=== PATIENT | female | born 1935 | race Caucasian/White ===

== ENCOUNTER 2017-05-23 11:46 | Inpatient (IN) | payer OTHER ==
[~2017-05-23] VITALS: Ht 165.1 cm; Wt 80.8 kg
--- NOTE | ~2017-05-23 | EKG ---
[place] [address] [place] [address] ELECTROCARDIOGRAM REPORT Name: KAILASH QUINONEZ Room #: 207-P ADM IN M.R.#: [id number] Admission: 05/23/17 Attend Phys: Alexi Boucher MD Discharge: Date of : 34 Report #: [id number] THIS REPORT FOR: //name// [facility] ED Test Date: 2017-05-23 Test Time: 12:10:46 Pat Name: KAILASH QUINONEZ Department: Room: 207 Gender: F Public Affairs Director: Berta MULTANI : 1935 Requested By: Aziza Henao Order Number: [id number] MD: Giovanny Armijo Measurements Intervals [place] Rate: 69 P: 68 VA: 155 QRS: 43 QRSD: 90 T: 168 QT: 413 QTc: 443 Interpretive Statements Sinus rhythm Left atrial enlargement Probable anterior infarct, age indeterminate T-wave abnormality, consider lateral ischemia No previous ECG available for comparison Electronically Signed On 05-23-2017 14:44:59 PLANOGRAMMER by Giovanny Armijo [email or web address] <ELECTRONICALLY SIGNED> By: Giovanny Armijo MD, [facility] 05/23/17 1444 1210 1210 Giovanny Armijo MD, FAC /EPI
--- NOTE | ~2017-05-23 | D ---
[facility] [place] [address] DISCHARGE SUMMARY Name: KAILASH QUINONEZ Room #: 207-P ADM IN M.R.#: [id number] Admission: 05/23/17 Attend Phys: Alexi Boucher MD Discharge: Date of : 34 Report #: [id number] THIS REPORT FOR: //name// CC: Ranjeet Boucher FINAL DIAGNOSIS: Cxmap-vl-mdsmkgz congestive heart failure. HOSPITAL COURSE: The patient is admitted with shortness of breath. She was treated for heart failure. Dr. Armijo followed her course and adjusted medications accordingly. She had no other interval complications. She responded well to treatment. PHYSICAL EXAMINATION: GENERAL: On the day of discharge, she was awake and alert with stable vital signs. LUNGS: Clear. HEART: Regular. ABDOMEN: Soft, normoactive bowel sounds. EXTREMITIES: No edema. DISPOSITION: She will be discharged home with diet and activity as tolerated. She is to stop digoxin and verapamil and she will begin Cozaar for additional blood pressure control. She is to maintain sotalol and Eliquis. She is scheduled for an outpatient nuclear stress test through [facility] and then follow up with Dr. Orellana in 1 week. <ELECTRONICALLY SIGNED> By: Jeb Salazar MD 05/26/17 1415 1220 1245 Jeb Salazar MD /nt
--- NOTE | ~2017-05-23 | EKG ---
[place] [address] [employer] [place] [address] ELECTROCARDIOGRAM REPORT Name: KAILASH QUINONEZ Room #: 207-P ADM IN M.R.#: [id number] Admission: 05/23/17 Attend Phys: Alexi Boucher MD Discharge: Date of : 34 Report #: [id number] THIS REPORT FOR: //name// [facility] Test Date: 2017-05-25 Test Time: 06:29:30 Pat Name: KAILASH QUINONEZ Department: Room: 207 P Gender: F Geek Squad Manager: BRYANT : 1935 Requested By: Giovanny Armijo Order Number: [id number] MD: Giovanny Armijo Measurements Intervals [place] Rate: 50 P: 71 LA: 176 QRS: 56 QRSD: 91 T: 135 QT: 501 QTc: 457 Interpretive Statements Sinus rhythm Probable left atrial enlargement RSR' in V1 or V2, probably normal variant Repol abnrm suggests ischemia, anterolateral Compared to ECG 05/24/2017 09:44:50 No significant change was found Electronically Signed On 05-25-2017 8:26:26 DIRECTOR DATA MANAGEMENT by Giovanny Armijo [email or web address] <ELECTRONICALLY SIGNED> By: Giovanny Armijo MD, [facility] 05/25/17 0826 0629 Giovanny Armijo MD, [facility] /EPI
--- NOTE | ~2017-05-23 | H ---
[facility] [place] [address] HISTORY AND PHYSICAL Name: KAILASH QUINONEZ Room #: 207-P [facility] IN M.R.#: [id number] Admission: 05/23/17 Attend Phys: Alexi Boucher MD Discharge: 05/26/17 Date of : 34 Report #: [id number] THIS REPORT FOR: //name// CC: Ranjeet Boucher ATTENDING PHYSICIAN: Alexi Boucher MD. CHIEF COMPLAINT: Increasing shortness of breath for the last week or so. HISTORY OF PRESENT ILLNESS: The patient is an 81-year-old lady who presented with shortness of breath, which has been progressively getting worse since a vacation in [place] last week. The patient does have a history of pulmonary fibrosis and has been on oxygen at home. She reports that in the last 6 months, she has noticed exertional shortness of breath, but in the last 1 week, it got so extreme that she was even short of breath at rest. The patient at the time of evaluation in the ER was noted to have hypoxia, and O2 saturations were dropping in the mid 80s. The chest x-ray was clear but showed evidence of diffuse interstitial infiltrates. The patient was admitted to the hospital for possible management of congestive heart failure. After being admitted to the hospital, she was noted to have atrial fibrillation and has been started on a Cardizem drip. She reports that she feels extremely well this morning, and her shortness of breath has resolved. PAST MEDICAL HISTORY: Significant for history of COPD, pulmonary fibrosis and chronic bronchitis and possible hypertension. ALLERGIES: SHE IS KNOWN TO BE ALLERGIC TO STATINS. MEDICATIONS: She was currently on at home verapamil, hydrochlorothiazide, digoxin, citalopram and Praluent Pen. SOCIAL HISTORY: She does not smoke or drink alcohol. She has smoked in the past. REVIEW OF SYSTEMS: She denied having any dizziness, no headache, no focal weakness. No abdominal pain or any urinary symptoms. PHYSICAL EXAMINATION: GENERAL: Pleasant elderly lady who was resting in bed, did not appear to be in any distress. She was awake, alert, oriented to place and person. VITAL SIGNS: She was afebrile with a temperature of 36.4, pulse of 66, respiration rate of 22, blood pressure was 164/65, oxygen saturation 94% on 2 liters of oxygen per nasal cannula. HEENT: There was no pallor, no icterus. Mucosa was moist. NECK: Supple. LUNGS: Clear with no wheezing. [facility] [address] [place] [address] HISTORY AND PHYSICAL Name: KAILASH QUINONEZ Room #: 207-P [facility] IN .R.#: [id number] Admission: 05/23/17 Attend Phys: Alexi Boucher MD Discharge: 05/26/17 Date of : 34 Report #: [id number] HEART: First and second heart sound, which was irregular. ABDOMEN: Soft, nontender, bowel sounds normally heard. EXTREMITIES: Examination of extremities did not reveal any edema. NEUROLOGIC: Nonfocal. LABORATORY DATA: On admission showed a white cell count 6.7, hemoglobin 14.2, hematocrit 43.1 and a platelet count of 242. Protime was 9.8, with INR of 1.0. Sodium 138, potassium 3.9, chloride 102, bicarbonate of 31, BUN of 21, creatinine of 0.9, glucose was 131. Troponin was less than 0.04. Pro-natriuretic peptide was 937. D-dimer was 2.42. CT of the chest was negative for pulmonary embolism. ASSESSMENT: 1. Congestive heart failure. 2. Atrial fibrillation. 3. Chronic obstructive pulmonary disease. 4. Pulmonary fibrosis. Discussed with Dr. Armijo, the chief order dispatcher. We will try and change her medications to control her atrial fibrillation. Continue with diuresis for right now and monitor the patient on telemetry. <ELECTRONICALLY SIGNED> By: Alexi Boucher MD 06/01/17 1357 0903 1002 Alexi Boucher MD /nt
--- NOTE | ~2017-05-23 | EKG ---
[place] [address] [facility] [place] [address] ELECTROCARDIOGRAM REPORT Name: KAILASH QUINONEZ Room #: 207-P ADM IN M.R.#: [id number] Admission: 05/23/17 Attend Phys: Alexi Boucher MD Discharge: Date of : 34 Report #: [id number] THIS REPORT FOR: //name// [facility] ED Test Date: 2017-05-23 Test Time: 14:41:14 Pat Name: KAILASH QUINONEZ Department: Room: 207 P Gender: F Petroleum Engineer: [facility] : 1935 Requested By: Aziza Henao Order Number: [id number] MD: Giovanny Armijo Measurements Intervals [place] Rate: 135 P: [place]: QRS: 50 QRSD: 79 T: 214 QT: 280 QTc: 420 Interpretive Statements Atrial fibrillation Ventricular premature complex RSR' in V1 or V2, right VCD Repolarization abnormality, prob rate related No previous ECG available for comparison Electronically Signed On 05-23-2017 14:46:05 ALL ROUND LOGGER by Giovanny Amrijo [email or web address] <ELECTRONICALLY SIGNED> By: Giovanny Armijo MD, [facility] 05/23/17 1446 1441 144 Giovanny Armijo MD, FACC /EPI
--- NOTE | ~2017-05-23 | EKG ---
[place] [address] [facility] [place] [address] ELECTROCARDIOGRAM REPORT Name: KAILASH QUINONEZ Room #: 207-P ADM IN M.R.#: [id number] Admission: 05/23/17 Attend Phys: Alexi Boucher MD Discharge: Date of : 34 Report #: [id number] THIS REPORT FOR: //name// [facility] Test Date: 2017-05-24 Test Time: 09:44:50 Pat Name: KAILASH QUINONEZ Department: Room: 207 P Gender: F Information Technology Assistant: JUANCHO : 1935 Requested By: Giovanny Armijo Order Number: [id number] MD: Giovanny Armijo Measurements Intervals [place] Rate: 59 P: 57 ID: 162 QRS: 44 QRSD: 103 T: 162 QT: 477 QTc: 473 Interpretive Statements Sinus rhythm ST and T wave abnormality, ischemia vs possible digoxin effect Compared to ECG 05/23/2017 14:41:14 Sinus rhythm has replaced atrial fibrillation Electronically Signed On 05-24-2017 11:35:01 CORRESPONDENCE ANALYST by Giovanny Armijo [email or web address] <ELECTRONICALLY SIGNED> By: Giovanny Armijo MD, [facility] 05/24/17 1135 Giovanny Armijo MD, [facility] /EPI
--- NOTE | ~2017-05-23 | EKG ---
[place] [address] [facility] [place] [address] ELECTROCARDIOGRAM REPORT Name: KAILASH QUINONEZ Room #: 207-P ADM IN M.R.#: [id number] Admission: 05/23/17 Attend Phys: Alexi Boucher MD Discharge: Date of : 34 Report #: [id number] THIS REPORT FOR: //name// [facility] Test Date: 2017-05-26 Test Time: 06:41:37 Pat Name: KAILASH QUINONEZ Department: Room: 207 P Gender: F Die Engraver: BRYANT : 1935 Requested By: Giovanny Armijo Order Number: [id number] MD: Dav Cheyr Measurements Intervals [place] Rate: 48 P: 63 [place]: 161 QRS: 55 QRSD: 90 T: 169 QT: 504 QTc: 451 Interpretive Statements Sinus bradycardia Probable left atrial enlargement Repol abnrm suggests ischemia, anterolateral Baseline wander in lead(s) II,III,aVF Compared to ECG 05/25/2017 06:29:30 Sinus rhythm no longer present Possible ischemia still present Electronically Signed On 05-26-2017 8:11:45 DATA REPORT ANALYST by Dav Chery [email or web address] <ELECTRONICALLY SIGNED> By: Dav Chery MD 05/26/17 0811 0 Dav Chery MD /EPI
--- NOTE | ~2017-05-23 | HC ---
[facility] [place] [address] CONSULTATION Name: KAILASH QUINONEZ Room #: 207-P [facility] IN M.R.#: [id number] Admission: 05/23/17 Attend Phys: Alexi Boucher MD Discharge: Date of : 34 Report #: [id number] THIS REPORT FOR: //name// CC: Ranjeet Boucher REASON FOR CONSULTATION: Atrial fibrillation. HISTORY OF PRESENT ILLNESS: The patient is an 81-year-old woman with a history of hypertension, marked dyslipidemia for which she takes Praluent and coronary disease by coronary artery calcification. She has a history of chronic bronchitis and pulmonary fibrosis, but does not use supplemental oxygen. She is recently back from a 2-week trip to [place], [place] where she was eating out almost every meal, except breakfast. She did get a fairly high dietary salt intake during this trip. When she returned, she developed shortness of breath and mild lower extremity edema. She was seen in the Emergency Department where initial EKG was normal. Follow up EKG demonstrated atrial fibrillation with a rapid ventricular response. She was largely asymptomatic with this rhythm abnormality. While in [place], she did notice some shortness of breath while dancing "the fast tunes." She denies orthopnea or paroxysmal nocturnal dyspnea. No history of near syncope or syncope. ALLERGIES AND INTOLERANCES: She has intolerance to STATINS. MEDICATIONS: Include alendronate 70 mg weekly, verapamil 240 mg daily, hydrochlorothiazide 50 mg daily, digoxin 0.125 mg daily, aspirin, Flonase and Praluent 75 mg injector. PAST MEDICAL HISTORY: Medical records have been reviewed and include a history of coronary disease by coronary calcium scoring, cervical cancer in 1974, osteomyelitis, pulmonary fibrosis, aljg-nv-cnzfzb aortic stenosis, moderate carotid stenosis, hysterectomy, bilateral hip replacements, cataract excision, carpal tunnel release. SOCIAL HISTORY: She is a former smoker, quit in 1985. 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 FAMILY HISTORY: Unremarkable for premature coronary disease. REVIEW OF SYSTEMS: Twelve systems negative except as that noted above. PHYSICAL EXAMINATION: GENERAL: Reveals a pleasant woman in no distress. VITAL SIGNS: Blood pressure is 170/80, heart rate of 119 and irregular. She is afebrile, 5 feet 5 inches tall, 171 pounds. HEENT: There are neither xanthelasma, subcutaneous xanthomata, oral mucosal or digital cyanosis or kyphoscoliosis present. [facility] [address] [place] [address] CONSULTATION Name: KAILASH QUINONEZ Room #: 207-P [facility] IN ..#: [id number] Admission: 05/23/17 Attend Phys: Alexi Boucher MD Discharge: Date of : 34 Report #: [id number] CHEST: Reveals diminished breath sounds at both bases. CARDIAC: An irregularly irregular rhythm with normal S1, S2. There is a soft systolic murmur at the base. ABDOMEN: Soft and nontender. EXTREMITIES: With 1+ pedal edema. Radial pulses are 2+. NEUROLOGIC: She is alert with a nonfocal exam. LABORATORY DATA: EKG: Atrial fibrillation with a rapid ventricular response with ST and T-wave abnormality, possibly related to digoxin. Sodium of 138, potassium 3.9, creatinine 0.9, glucose 131. ProBNP of 937. White count 6.7, hemoglobin 14.2, hematocrit 43, platelet count 242. TSH 1.125. CT angiography of the chest demonstrated no pulmonary embolism. There were diffuse interstitial infiltrates and gckx-sr-gvlcsuwt bilateral effusions suggesting edema. IMPRESSION: 1. Rdmra-ym-dumkjii diastolic heart failure. 2. Paroxysmal atrial fibrillation of recent onset, new diagnosis. 3. Hypertension. 4. Hpge-sf-pvyxlpcu aortic stenosis. 5. Pulmonary fibrosis. 6. Dyslipidemia. RECOMMENDATIONS: 1. Intravenous Cardizem, antiarrhythmic therapy. 2. Anticoagulant therapy in light of her elevated CHADS-VASc score. 3. Intravenous diuretic therapy; dietary salt restriction discussed. 4. Echocardiogram with Doppler. 5. Thyroid function studies. Further thoughts will be forthcoming based on this evaluation. Thank you for asking me to participate in the patient's care. <ELECTRONICALLY SIGNED> By: Giovanny Armijo MD, FACC 05/25/17 0907 1631 11 Giovanny Armijo MD, FACC /nt
--- NOTE | ~2017-05-23 | 2DMMODE ---
[facility] [address] [place] [address] 2 D/M-MODE ECHOCARDIOGRAM Name: KAILASH QUINONEZ Room #: 207-P ADM IN M.R.#: [id number] Admission: 05/23/17 Attend Phys: Elvira Roger Discharge: Date of : 33 Date of Service: 05/25/17 0900 Report #: [id number] THIS REPORT FOR: //name// APPROVED REPORT Study performed: 05/25/2017 07:50:42 EXAM: Comprehensive 2D, Doppler, and color-flow Echocardiogram Patient Location: Bedside Room #: 207 Status: routine BSA: 1.88 HR: 50 bpm BP: 121/59 mmHg Other Information Study Quality: Good Indications COPD Atrial Fibrillation Hypertension/HDD 2D Dimensions RVDd: 33.70 mm LVEF(%): 47.55 (>50%) IVSd: 15.78 (7-11mm) LVOT Diam: 16.33 (18-24mm) LVDd: 37.75 mm PWd: 15.34 (7-11mm) LVDs: 28.92 (25-40mm) Aortic Root: 28.29 mm IVC: 21.00 mm Perez's LVEF: 47.55 % Volumes Left Atrial Volume (Systole) Single Plane 4CH: 43.58 mL Single Plane 2CH: 51.10 mL LA ESV Index: 27.00 mL/m2 Aortic Valve AoV Peak Simeon.: 2.38 m/s AO Peak Gr.: 22.59 mmHg LVOT Max P.74 mmHg AO Mean Gr.: 9.54 mmHg LVOT Mean P.07 mmHg AO V2 Mean: 1.41 m/s LVOT Max V: 1.30 m/s AO V2 VTI: 48.43 cm LVOT Mean V: 0.79 m/s MARVA (VTI): 1.34 cm2 LVOT V1 VTI: 31.08 cm MARVA Vmax: 1.14 cm2 [facility] [employer] [place] [address] 2 D/M-MODE ECHOCARDIOGRAM Name: KAILASH QUINONEZ Room #: 207-P [facility] IN M.R.#: [id number] Admission: 05/23/17 Attend Phys: Elvira Roger Discharge: Date of : 33 Date of Service: 05/25/17 0900 Report #: [id number] SV (LVOT): 65.06 mL Mitral Valve E/A Ratio: 3.3 MV Decel. Time: 233.79 ms MV E Max Simeon.: 1.40 m/s MV A Simeon.: 0.42 m/s MV PHT: 67.80 ms IVRT: 83.04 ms Pulmonary Valve PV Peak Simeon.: 0.73 m/s PV Peak Gr.: 2.15 mmHg Pulmonary Vein P Vein S: 0.54 m/s P Vein D: 0.76 m/s P Vein S/D Ratio: 0.71 Tricuspid Valve TR Peak Simeon.: 3.28 m/s RAP Estimate: 10.00 mmHg TR Peak Gr.: 43.14 mmHg PA Pressure: 53.00 mmHg Left Ventricle The left ventricle is normal size. There is normal LV segmental wall motion. Mild to moderate concentric left ventricular hypertrophy. The left ventricular systolic function is normal. The left ventricular ejection fraction is within the normal range. LVEF is 60%. Transmitral Doppler flow pattern suggests restrictive physiology. Right Ventricle Right ventricle is at the upper limits of normal. The right ventricular systolic function is normal. Atria The left atrium size is normal. Right atrium is mildly dilated. Aortic Valve Aortic valve is calcified, trileaflet. No aortic regurgitation is present. There is mild to moderate valvular aortic stenosis. Calculated aortic valve area is 1.3 cm2 with maximum pressure gradient of 23 mmHg and mean pressure gradient of 10 mmHg. Mitral Valve [place] [id number] 2 D/M-MODE ECHOCARDIOGRAM Name: KAILASH QUINONEZ Room #: 207-P [facility] IN M.R.#: [id number] Admission: 05/23/17 Attend Phys: Elvira Roger Discharge: Date of : 34 Date of Service: 05/25/17 0900 Report #: [id number] Moderate mitral annular calcification. Mild mitral regurgitation. No evidence of mitral valve stenosis. Tricuspid Valve The tricuspid valve is normal in structure. Mild tricuspid regurgitation. PAP is estimated at 50 mmHg Pulmonic Valve The pulmonary valve is normal in structure. Trace to mild pulmonic regurgitation. Great Vessels The aortic root is normal in size. IVC is dilated and collapses >50% with inspiration. Pericardium There is no pericardial effusion. <Conclusion> The left ventricular systolic function is normal. There is normal LV segmental wall motion. LVEF is 60%. Transmitral Doppler flow pattern suggests restrictive physiology. Aortic valve is calcified, trileaflet. There is mild to moderate valvular aortic stenosis with a calculated aortic valve area is 1.3 cm2 (maximum pressure gradient of 23 mmHg; mean pressure gradient of 10 mmHg). Moderate mitral annular calcification. Mild mitral regurgitation. Mild tricuspid regurgitation. PAP is estimated at 50 mmHg There is no pericardial effusion. <ELECTRONICALLY SIGNED> By: Giovanny Armijo MD, FACC 05/25/17899 9 9 Giovanny Armijo MD, FACC /INF
[2017-05-23 11:50] VITALS: BP 186/64
[2017-05-23] MEDS ORDERED: HYDROCHLOROTHIA25 M2 PO (11:59)
[2017-05-23] MEDS ORDERED: VERAPAMIL HCL240 MG PO (11:59)
[2017-05-23] MEDS ORDERED: CELEXA20 MG PO (12:00)
[2017-05-23] MEDS ORDERED: DIGOXIN250 MCG PO (12:00)
[2017-05-23] MEDS ORDERED: PRALUENT P150 MG/1 M SUBQ (12:01)
[2017-05-23 12:04] LABS: ABSOLUTE NEUTROPHILS 4.6 thou/uL (1.4-8.2); BASOPHILS 0.8 % (0.0-2.0); EOSINOPHILS 2.1 % (0.0-3.0); HEMATOCRIT 43.1 % (37.0-47.0); HEMOGLOBIN 14.2 gm/dL (12.0-15.0); LYMPHOCYTES 19.2 % (24.0-44.0); MCH 27.7 pg (26.0-34.0); MONOCYTES 9.8 % (1.0-8.0); PLATELET COUNT 242 thou/uL (150-400); POLYS 68.1 % (36.0-66.0); RBC 5.13 mil/uL (4.20-5.00); RDW 15.5 % (10.5-14.5); WBC 6.7 thou/uL (4.0-11.0)
[2017-05-23 12:12] LABS: ANION GAP 5 mmol/L (7-16); BUN 21 mg/dL (7-18); CHLORIDE 102 mmol/L (98-107); CO2 31 mmol/L (21-32); CREATININE 0.9 mg/dL (0.6-1.0); GLUCOSE 131 mg/dL (74-106); POTASSIUM 3.9 mmol/L (3.5-5.1); SODIUM 138 mmol/L (136-145)
[2017-05-23 12:20] LABS: TROPONIN-I < 0.04 ng/mL (<0.06)
[2017-05-23 14:08] VITALS: BP 195/77
[2017-05-23 15:29] LABS: APTT 23.8 Seconds (24.5-32.8); PROTIME 9.8 Seconds (9.3-11.4)
[2017-05-23 16:15] VITALS: BP 180/82
[2017-05-23 16:19] VITALS: BP 174/82
[2017-05-23] MEDS ORDERED: PRESERVISION A1 EACH PO (19:58)
[2017-05-23] MEDS ORDERED: ALENDRONATE SOD70 MG PO (20:06)
[2017-05-23 20:07] VITALS: BP 156/80
[2017-05-23 23:34] VITALS: BP 162/77
[2017-05-24 05:07] VITALS: BP 159/63
[2017-05-24 07:25] VITALS: BP 164/65
[2017-05-24 11:35] VITALS: BP 150/65
[2017-05-24 16:25] VITALS: BP 120/53
[2017-05-24 20:46] VITALS: BP 115/53
[2017-05-25 05:14] VITALS: BP 121/59
[2017-05-25 08:00] VITALS: BP 147/65
[2017-05-25 12:00] VITALS: BP 126/61
[2017-05-25 16:00] VITALS: BP 124/66
[2017-05-25 20:12] VITALS: BP 143/55
[2017-05-26 04:45] VITALS: BP 138/67
[2017-05-26 04:50] LABS: CALCIUM 9.5 mg/dL (8.5-10.1); CREATININE 1.3 mg/dL (0.6-1.0); POTASSIUM 4.8 mmol/L (3.5-5.1)
[2017-05-26 08:10] VITALS: BP 174/65
[2017-05-26] MEDS ORDERED: SOTALOL80 MG PO (08:18)
[2017-05-26] MEDS ORDERED: ELIQUIS5 MG PO (08:18)
[2017-05-26] MEDS ORDERED: LASIX 20 MG TAB20 MG PO (10:18)
[2017-05-26] MEDS ORDERED: COZAAR 25 MG TA25 M1 PO (10:18)
[2017-05-26 11:35] VITALS: BP 140/54
[2017-05-26 13:19] VITALS: BP 140/54
[2017-08-18] MEDS ORDERED: CALCIUM 500 +1 EAC5 PO (19:58)
[2017-08-18] MEDS ORDERED: ALENDRONATE SOD10 MG PO (19:59)
[2017-08-18] MEDS ORDERED: KLOR-CON 1010 MEQ PO (20:00)
[2017-08-21] MEDS ORDERED: VENTOLIN HFA 1818 GM INH (11:45)
[2017-08-21] MEDS ORDERED: PREDNISONE 20 M20 M1 PO (11:45)
== END 2017-05-26 14:55 | disposition home or self-care (01) | DRG 291 ==
LOC: ER 11:46 → 2N 13:54 → EROBS 13:54 → 2N 14:35 → ENTRNSPT 05-26 14:44 → EDTRNSPTSTS 05-26 14:46 → 2N 05-26 14:55
PROVIDERS: Emergency Medicine; Internal Medicine Geriatric Medicine
PROC: B24BZZ4 Ultrasonography of Heart with Aorta, Transesophageal (ICD-10-PCS; principal; 2017-05-25)
DX: I11.0 Hypertensive heart disease with heart failure (principal); J96.00 Acute respiratory failure, unspecified whether with hypoxia or hypercapnia; D68.59 Other primary thrombophilia; I50.33 Acute on chronic diastolic (congestive) heart failure; J44.9 Chronic obstructive pulmonary disease, unspecified; E78.5 Hyperlipidemia, unspecified; I48.0 Paroxysmal atrial fibrillation; I25.10 Atherosclerotic heart disease of native coronary artery without angina pectoris; I35.0 Nonrheumatic aortic (valve) stenosis; J84.10 Pulmonary fibrosis, unspecified; Z96.643 Presence of artificial hip joint, bilateral; Z90.710 Acquired absence of both cervix and uterus; Z85.41 Personal history of malignant neoplasm of cervix uteri; Z87.891 Personal history of nicotine dependence; Z79.899 Other long term (current) drug therapy; Z88.8 Allergy status to other drugs, medicaments and biological substances
CPT/HCPCS: 10194

== ENCOUNTER 2017-09-19 10:22 | Inpatient (IN) | payer OTHER ==
[~2017-09-19] VITALS: Ht 165.1 cm; Wt 63.5 kg
--- NOTE | ~2017-09-19 | D ---
[facility] [place] [address] DISCHARGE SUMMARY Name: KAILASH QUINONEZ Room #: 221-P [facility] IN M.R.#: [id number] Admission: 09/19/17 Attend Phys: Elvira Esquivel Discharge: 09/24/17 Date of : 34 Report #: [id number] THIS REPORT FOR: //name// CC: Ranjeet Orellana FINAL DIAGNOSES: 1. Chronic obstructive pulmonary disease exacerbation. 2. Acute bronchitis. 3. Pulmonary hypertension. 4. Pulmonary fibrosis. 5. Chronic diastolic congestive heart failure. 6. Atrial fibrillation. HOSPITAL COURSE: This patient was admitted with shortness of breath. She was diagnosed with COPD exacerbation due to bronchitis and treated with steroids, nebulized treatments and antibiotics. She made slow and steady progress during her stay. She was followed by [facility]monary [facility] Cardiology Services. Other routine medications were continued. Gradually, her cough, congestion and hypoxia resolved. Over the last 2 hospital days, she was not requiring oxygen. Room air saturations with activity were 95% and an overnight desaturation study was negative for significant desaturations. She remained in the low-to-mid 90s all through the night. She had no other interval complication. PHYSICAL EXAMINATION: GENERAL: On the day of discharge, she was awake and alert, in no distress. VITAL SIGNS: Stable. LUNGS: Had just faint expiratory wheeze. HEART: Irregular. ABDOMEN: Soft. Normoactive bowel sounds. EXTREMITIES: No edema. DISPOSITION: She will be discharged to home with low-salt diet, activity as tolerated. Follow up with Dr. Orellana in [address] Saldaña in 1-2 weeks. DISCHARGE MEDICATIONS: She will resume all usual medications plus a slow prednisone taper of 20 mg b.i.d. for a week, then 20 mg a day until she returns to the office; Mucinex twice a day; DuoNebs 4 times a day and Augmentin 500 mg b.i.d. for 5 days. <ELECTRONICALLY SIGNED> By: Jeb Salazar MD 09/28/17 1405 1010 1130 Jeb Salazar MD /nt
--- NOTE | ~2017-09-19 | H ---
[facility] [place] [address] HISTORY AND PHYSICAL Name: KAILASH QUINONEZ ANN Room #: 416-P ADM IN M.R.#: [id number] Admission: 09/19/17 Attend Phys: Elvira Esquivel Discharge: Date of : 33 Report #: [id number] THIS REPORT FOR: //name// CC: Ranjeet Orellana DATE OF SERVICE: 09/19/2017 CHIEF COMPLAINT: This is an 81-year-old female with shortness of breath. HISTORY OF PRESENT ILLNESS: This is an 81-year-old female, since April, she has been struggling with intermittent episodes of dyspnea with known history of mild to moderate aortic stenosis. She has history of diastolic dysfunction and has had problems in the past with exacerbation. She also has some mild interstitial fibrosis or interstitial pneumonitis type process that really is not evident so much on x-ray, but on a high resolution CT. She had a long history of smoking and quit in the mid 80s. PAST MEDICAL HISTORY: Noteworthy mainly for those findings in the HPI. We did also note that she has a history of mild pulmonary hypertension mean by echo criteria. She has atrial fibrillation and currently is on Eliquis. MEDICATIONS: Include sotalol, losartan, citalopram, Lasix, albuterol, pantoprazole, piperacillin now IV, apixaban. FAMILY HISTORY: Otherwise, negative. SOCIAL HISTORY: Otherwise, negative. REVIEW OF SYSTEMS: Otherwise, negative. PHYSICAL EXAMINATION: GENERAL: Shows her to be in no distress. Her daughter is at the bedside. HEENT: Otherwise, negative. NECK: Supple, without thyromegaly or adenopathy. CHEST: Shows scattered rhonchi and wheezing. CARDIOVASCULAR: Showed a regular rate and rhythm. ABDOMEN: Soft and nontender. EXTREMITIES: Negative. ASSESSMENT AND PLAN: This is a patient with numerous reasons to be short of breath, but as I begin to understand the entire process it seems that this is more related to mucus production and wheezing and that there may be a more significant element of COPD that be contributing and is magnified because of her history of aortic stenosis, congestive heart failure and pulmonary fibrosis. So [facility] [address] [place] [address] HISTORY AND PHYSICAL Name: KAILASH QUINONEZ Room #: 416-P ADM IN M.R.#: [id number] Admission: 09/19/17 Attend Phys: Elvira Esquivel Discharge: Date of : 34 Report #: [id number] I think the plan will be to put more emphasis on pulmonary toilet and we will see if this does not improve her situation. By: 1018 1046 Ranjeet Orellana MD /nt
--- NOTE | ~2017-09-19 | EKG ---
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
[~2017-09-19 10:22] MED LIST: ALENDRONATE SOD10 MG PO; ALENDRONATE SOD70 MG PO; CALCIUM 500 +1 EAC5 PO; CELEXA20 MG PO; COZAAR 25 MG TA25 M1 PO; DIGOXIN250 MCG PO; ELIQUIS5 MG PO; HYDROCHLOROTHIA25 M2 PO; KLOR-CON 1010 MEQ PO; LASIX 20 MG TAB20 MG PO; PRALUENT P150 MG/1 M SUBQ; PREDNISONE 20 M20 M1 PO; PRESERVISION A1 EACH PO; SOTALOL80 MG PO; VENTOLIN HFA 1818 GM INH; VERAPAMIL HCL240 MG PO
[2017-09-19 10:40] VITALS: BP 182/79
[2017-09-19 11:45] LABS: ABSOLUTE NEUTROPHILS 8.8 thou/uL (1.4-8.2); BASOPHILS 0.4 % (0.0-2.0); EOSINOPHILS 0.3 % (0.0-3.0); HEMATOCRIT 36.7 % (37.0-47.0); LYMPHOCYTES 4.1 % (24.0-44.0); MCH 27.5 pg (26.0-34.0); MCHC 32.7 g/dL (28.0-37.0); MCV 84.2 fL (80.0-100.0); MONOCYTES 5.1 % (1.0-8.0); PLATELET COUNT 314 thou/uL (150-400); POLYS 90.1 % (36.0-66.0); RBC 4.36 mil/uL (4.20-5.00); RDW 17.9 % (10.5-14.5); WBC 9.8 thou/uL (4.0-11.0)
[2017-09-19 11:55] LABS: ANION GAP 5 mmol/L (7-16); BUN 25 mg/dL (7-18); CALCIUM 9.5 mg/dL (8.5-10.1); CHLORIDE 100 mmol/L (98-107); CO2 33 mmol/L (21-32); CREATININE 1.3 mg/dL (0.6-1.0); GLUCOSE 114 mg/dL (74-106); POTASSIUM 3.8 mmol/L (3.5-5.1); SODIUM 138 mmol/L (136-145)
[2017-09-19 12:04] LABS: TROPONIN-I < 0.04 ng/mL (<0.06)
[2017-09-19 14:18] VITALS: BP 161/58
[2017-09-19 15:00] VITALS: BP 144/67
[2017-09-19 16:45] VITALS: BP 144/67
[2017-09-19 19:14] LABS: CALCIUM 9.5 mg/dL (8.5-10.1); CREATININE 1.4 mg/dL (0.6-1.0); MAGNESIUM 2.2 mg/dL (1.8-2.4); POTASSIUM 3.7 mmol/L (3.5-5.1)
[2017-09-19 20:29] VITALS: BP 160/60
[2017-09-20 03:54] VITALS: BP 179/80
[2017-09-20 05:09] LABS: HEMATOCRIT 33.1 % (37.0-47.0); HEMOGLOBIN 10.8 gm/dL (12.0-15.0); MCH 27.3 pg (26.0-34.0); MCHC 32.6 g/dL (28.0-37.0); MCV 83.9 fL (80.0-100.0); RBC 3.94 mil/uL (4.20-5.00); RDW 17.4 % (10.5-14.5); WBC 5.4 thou/uL (4.0-11.0)
[2017-09-20 05:26] LABS: CALCIUM 9.1 mg/dL (8.5-10.1); CREATININE 1.4 mg/dL (0.6-1.0); POTASSIUM 4.1 mmol/L (3.5-5.1)
[2017-09-20 07:40] VITALS: BP 137/64
[2017-09-20 08:19] VITALS: BP 137/64
[2017-09-20 21:06] VITALS: BP 137/87
[2017-09-21 04:00] VITALS: BP 176/69
[2017-09-21 04:49] LABS: CALCIUM 8.8 mg/dL (8.5-10.1); CREATININE 1.4 mg/dL (0.6-1.0); POTASSIUM 3.6 mmol/L (3.5-5.1)
[2017-09-21 07:40] VITALS: BP 179/79
[2017-09-21 13:08] LABS: ANA INTERPRETATION Positive (Negative)
[2017-09-21 15:10] VITALS: BP 145/77
[2017-09-21 20:00] VITALS: BP 152/69
[2017-09-22 04:00] VITALS: BP 158/69
[2017-09-22 04:25] LABS: CALCIUM 8.6 mg/dL (8.5-10.1); CREATININE 1.4 mg/dL (0.6-1.0); POTASSIUM 3.8 mmol/L (3.5-5.1)
[2017-09-22 08:22] VITALS: BP 174/84
[2017-09-22 19:18] VITALS: BP 129/64
[2017-09-23 07:15] VITALS: BP 190/78
[2017-09-23 21:10] VITALS: BP 126/57
[2017-09-24 08:01] VITALS: BP 158/78
[2017-09-24] MEDS ORDERED: DUONEB 2.5-0.5 M3 ML INH (10:05)
[2017-09-24] MEDS ORDERED: MUCINEX600 MG PO (10:06)
[2017-09-24] MEDS ORDERED: PREDNISONE 20 M20 M1 PO (10:06)
[2017-09-24] MEDS ORDERED: AUGMENTIN 500-1 EACH PO (10:07)
[2017-09-24 13:32] VITALS: BP 158/78
== END 2017-09-24 14:24 | disposition home or self-care (01) | DRG 189 ==
LOC: ER 10:22 → 4N 13:25 → EROBS 13:25 → 4N 14:22 → SICU 09-22 10:49
PROVIDERS: Emergency Medicine; Internal Medicine Pulmonary Disease
DX: J96.01 Acute respiratory failure with hypoxia (principal); J44.1 Chronic obstructive pulmonary disease with (acute) exacerbation; J44.0 Chronic obstructive pulmonary disease with (acute) lower respiratory infection; J84.9 Interstitial pulmonary disease, unspecified; D68.59 Other primary thrombophilia; I50.32 Chronic diastolic (congestive) heart failure; Z96.643 Presence of artificial hip joint, bilateral; J84.10 Pulmonary fibrosis, unspecified; J20.9 Acute bronchitis, unspecified; I27.20 Pulmonary hypertension, unspecified; M19.90 Unspecified osteoarthritis, unspecified site; I35.0 Nonrheumatic aortic (valve) stenosis; F41.9 Anxiety disorder, unspecified; F32.9 Major depressive disorder, single episode, unspecified; I48.0 Paroxysmal atrial fibrillation; Z98.42 Cataract extraction status, left eye; Z98.41 Cataract extraction status, right eye; Z90.710 Acquired absence of both cervix and uterus; Z88.8 Allergy status to other drugs, medicaments and biological substances; Z87.891 Personal history of nicotine dependence
CPT/HCPCS: 10790; 15002

== ENCOUNTER → 2018-02-01 | Outpatient (CLI) | payer OTHER ==
[~2018-02-01] MED LIST changes: +AUGMENTIN 500-1 EACH PO; +DUONEB 2.5-0.5 M3 ML INH; +MUCINEX600 MG PO
== END ==
LOC: CAT 11:07
DX: J90 Pleural effusion, not elsewhere classified (principal); J84.10 Pulmonary fibrosis, unspecified; I70.0 Atherosclerosis of aorta; R91.8 Other nonspecific abnormal finding of lung field

== ENCOUNTER 2018-02-06 11:19 | Inpatient (IN) | payer OTHER ==
[2018-02-06] VITALS (18 sets, daily range): BP systolic 123–236; BP diastolic 56–117
[~2018-02-06] VITALS: Ht 165.1 cm; Wt 79.4 kg
--- NOTE | ~2018-02-06 | EKG ---
[address] [place] [address] ELECTROCARDIOGRAM REPORT Name: KAILASH QUINONEZ Room #: 424-P ADM IN M.R.#: [id number] Admission: 02/06/18 Attend Phys: Elvira Esquivel Discharge: Date of : 34 Report #: [id number] THIS REPORT FOR: //name// 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 : 1935 Requested By: Giovanny Armijo Order Number: [id number] MD: Giovanny Armijo Measurements Intervals [place] Rate: 69 P: 74 MT: 148 QRS: 24 QRSD: 90 T: 153 QT: 426 QTc: 457 Interpretive Statements Sinus rhythm Atrial premature complex Nonspecific ST and T wave abnormality Compared to ECG 02/06/2018 11:33:04 Atrial premature complex(es) now present Electronically Signed On 02-09-2018 8:19:55 CDT by Giovanny Armijo [email or web address] <ELECTRONICALLY SIGNED> By: Giovanny Armijo MD, [facility] 02/09/18 0819 4 4 Giovanny Armijo MD, [facility] /EPI
--- NOTE | ~2018-02-06 | H ---
[facility] [place] [address] HISTORY AND PHYSICAL Name: KAILASH QUINONEZ Room #: 424-P [facility] IN M.R.#: [id number] Admission: 02/06/18 Attend Phys: Elvira Esquivel Discharge: 02/09/18 Date of : 34 Report #: [id number] THIS REPORT FOR: //name// CC: Ranjeet Orellana DATE OF SERVICE: 02/06/2018 ATTENDING PHYSICIAN: Ranjeet Orellana MD. CHIEF COMPLAINT: Difficulty breathing and shortness of breath. HISTORY OF PRESENT ILLNESS: The patient is an 82-year-old lady who presented to the emergency room complaining of having sudden onset of shortness of breath. The patient had not taken her blood pressure medications. She was evaluated in the ER and noted to have a markedly elevated blood pressure with acute shortness of breath. The patient was given Lasix with which she felt better and her shortness of breath improved. The patient was noted to have left ventricular hypertrophy with strain. The patient has been admitted to the hospital for further management of hypertension. PAST MEDICAL HISTORY: Significant for history of COPD, pulmonary fibrosis, chronic bronchitis, atrial fibrillation and hypertension. ALLERGIES: SHE IS KNOWN TO BE ALLERGIC TO STATINS. MEDICATIONS: She was currently on was losartan, Lasix, nebulizer treatment, prednisone, sotalol, apixaban, alendronate and potassium supplement, citalopram. SOCIAL HISTORY: The patient has smoked in the past. She drinks alcohol occasionally. REVIEW OF SYSTEMS: She denied having any nausea, vomiting, abdominal pain or any urinary symptoms. PHYSICAL EXAMINATION: GENERAL: Pleasant elderly lady who was sitting by the bedside this morning. Did not appear to be in distress. She was awake, alert to place and person. VITAL SIGNS: She was afebrile with a pulse of 74 per minute and regular, respiratory rate of 16, blood pressure 128/55, oxygen saturation 97% on room air. HEENT: Skull was atraumatic. There was no pallor, no icterus. Mucosa was moist. NECK: Supple. LUNGS: Clear to auscultation with no wheezing or crackles. HEART: First and second normal. ABDOMEN: Soft, nontender, bowel sounds heard. [facility] [address] [place] [address] HISTORY AND PHYSICAL Name: KAILASH QUINONEZ Room #: 424-P [facility] IN .R.#: [id number] Admission: 02/06/18 Attend Phys: Elvira Esquivel Discharge: 02/09/18 Date of : 34 Report #: [id number] EXTREMITIES: Did not reveal any edema. NEUROLOGIC: Nonfocal. LABORATORY DATA: This morning showed a white cell count 6.4, hemoglobin 11.5, hematocrit 36.9 and a platelet count of 237. Sodium was 140, potassium 3.7, chloride 101, bicarbonate of 36, BUN of 27, creatinine of 1.5, calcium was 9.2. Blood gases yesterday was pH of 7.3, pCO2 of 51, pO2 of 69. Chest x-ray showed evidence of congestive heart failure with bilateral diffuse pulmonary edema and a right pleural effusion. There was a CT done on 02/01/2018, which shows right pleural based mass. ASSESSMENT: 1. Acute pulmonary edema. 2. Hypertensive urgency. 3. Atrial fibrillation. 4. Chronic obstructive pulmonary disease with pulmonary fibrosis. PLAN: Continue current medications. We will monitor her blood pressure, check serial cardiac enzymes and have a Cardiology and Pulmonary consultation. <ELECTRONICALLY SIGNED> By: Alexi Boucher MD 02/11/18 1115 1043 1255 Alexi Boucher MD /nt
--- NOTE | ~2018-02-06 | D ---
[facility] [place] [address] DISCHARGE SUMMARY Name: KAILASH QUINONEZ Room #: 424-P ADM IN M.R.#: [id number] Admission: 02/06/18 Attend Phys: Elvira Esquivel Discharge: Date of : 34 Report #: [id number] THIS REPORT FOR: //name// CC: Ranjeet Orellana FINAL DIAGNOSES: 1. Bsmdb-rj-nqvvueq diastolic heart failure. 2. Chronic obstructive pulmonary disease exacerbation. 3. Hypertension. HOSPITAL COURSE: The patient was admitted with shortness of breath. She was found to be in heart failure. There was some question of whether she had stopped some of her medications at home and it was unclear. In any event, Pulmonary and Cardiology saw her and treated her with additional diuretic. This seemed to improve her symptoms significantly. She was re-educated on heart failure and medication management. PHYSICAL EXAMINATION: GENERAL: On the day of discharge, she was awake and alert. VITAL SIGNS: Stable vital signs. LUNGS: Clear. HEART: Regular. ABDOMEN: Soft. Normoactive bowel sounds. EXTREMITIES: No edema. DISPOSITION: She will be discharged to home with diet and activity as tolerated. Low sodium, 2000 mL fluid restriction. Follow up with Dr. Orellana, Dr. Baird and Dr. Armijo in 1 week. Home health with daily weights and management of heart failure. DISCHARGE MEDICATIONS: DuoNebs, Eliquis b.i.d., Pulmicort b.i.d., Lexapro, vitamin D, Zetia, Lasix 40 mg, losartan 50 mg, potassium 10 mEq twice a day, prednisone 10 mg and sotalol 40 mg b.i.d. She will need an outpatient CT of the chest. There was a pleural-based mass noted on chest x-ray. By: 1027 1135 Jeb Salazar MD /nt
--- NOTE | ~2018-02-06 | EKG ---
[place] [address] [employer] [place] [address] ELECTROCARDIOGRAM REPORT Name: KAILASH QUINONEZ Room #: 246-P ADM IN M.R.#: [id number] Admission: 02/06/18 Attend Phys: Elvira Esquivel Discharge: Date of : 34 Report #: [id number] THIS REPORT FOR: //name// [facility] ED Test Date: 2018-02-06 Test Time: 11:33:04 Pat Name: KAILASH QUINONEZ Department: Room: 246 Gender: F Dental Officer: MCKENZIE : 1935 Requested By: Mirlande Marion Order Number: [id number] MD: Giovanny Armijo Measurements Intervals [place] Rate: 85 P: 67 ME: 153 QRS: 43 QRSD: 91 T: 125 QT: 395 QTc: 470 Interpretive Statements Sinus rhythm Left atrial enlargement RSR' in V1 or V2, right VCD or RVH Poor R wave progression Nonspecific ST segment abnormality Compared to ECG 09/19/2017 11:04:02 No significant change was found Electronically Signed On 02-08-2018 8:38:40 CDT by Giovanny Armijo [email or web address] <ELECTRONICALLY SIGNED> By: Giovanny Armijo MD, FACC 02/08/18 0838 1133 1133 Giovanny Armijo MD, [facility] /EPI
--- NOTE | ~2018-02-06 | EKG ---
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 By: 32 32 Epiphany Epiphany, /SUNIL
--- NOTE | ~2018-02-06 | 2DMMODE ---
[facility] [address] [place] [address] 2 D/M-MODE ECHOCARDIOGRAM Name: DEVIKAILASH Room #: 246-P ADM IN M.R.#: [id number] Admission: 02/06/18 Attend Phys: Ranjeet Henry Discharge: Date of : 34 Date of Service: 02/08/18 1215 Report #: [id number] THIS REPORT FOR: //name// APPROVED REPORT Study performed: 02/08/2018 08:29:07 EXAM: Comprehensive 2D, Doppler, and color-flow Echocardiogram Patient Location: ICU Room #: 246 Status: routine BSA: 1.87 HR: 60 bpm BP: 179/70 mmHg Rhythm: NSR Other Information Study Quality: Adequate Indications Pulmonary Hypertension Atrial Fibrillation Hypertension/HDD 2D Dimensions RVDd: 27.42 mm IVSd: 13.87 (7-11mm) LVOT Diam: 17.24 (18-24mm) LVDd: 35.05 mm PWd: 14.21 (7-11mm) Ascending Ao: 32.90 (22-36mm) LVDs: 24.96 (25-40mm) Volumes Left Atrial Volume (Systole) Single Plane 4CH: 57.05 mL Aortic Valve AoV Peak Simeon.: 2.19 m/s AO Peak Gr.: 19.78 mmHg LVOT Max P.59 mmHg AO Mean Gr.: 8.56 mmHg AO V2 Mean: 1.34 m/s LVOT Max V: 1.28 m/s AO V2 VTI: 43.28 cm MARVA Vmax: 1.37 cm2 Mitral Valve E/A Ratio: 1.3 [facility] [address] [place] [address] 2 D/M-MODE ECHOCARDIOGRAM Name: KAILASH QUINONEZ Room #: 246-P ADM IN .R.#: [id number] Admission: 02/06/18 Attend Phys: Ranjeet Henry Discharge: Date of : 34 Date of Service: 02/08/18 1215 Report #: [id number] MV Decel. Time: 277.10 ms MV E Max Simeon.: 0.99 m/s MV A Simeon.: 0.79 m/s MV PHT: 80.36 ms IVRT: 124.57 ms Pulmonary Valve PV Peak Simeon.: 0.78 m/s PV Peak Gr.: 2.42 mmHg Pulmonary Vein P Vein S: 0.53 m/s P Vein A: 0.31 m/s P Vein D: 0.45 m/s P Vein A Dur.: 128.0 msec P Vein S/D Ratio: 1.18 Tricuspid Valve RAP Estimate: 5.00 mmHg Left Ventricle The left ventricle is normal size. Mild to moderate concentric left ventricular hypertrophy. The left ventricular systolic function is normal. The left ventricular ejection fraction is within the normal range. LVEF is 65-70%. Moderate diastolic dysfunction is present (pseudonormal filling). Right Ventricle The right ventricle is normal size. The right ventricular systolic function is normal. Atria The left atrium size is normal. The right atrium size is normal. Aortic Valve Aortic valve is calcified. Trace aortic regurgitation. Mild to moderate aortic stenosis. Vmax 2.17m/s Mitral Valve Moderate mitral annular calcification. Mild mitral regurgitation. No evidence of mitral valve stenosis. Tricuspid Valve The tricuspid valve is normal in structure. There is no tricuspid valve regurgitation noted. Unable to assess PA pressure. Pulmonic Valve The pulmonary valve is normal in structure. Trace pulmonic [facility] [address] [place] [address] 2 D/M-MODE ECHOCARDIOGRAM Name: KAILASH QUINONEZ ANN Room #: 246-P ADM IN M.R.#: [id number] Admission: 02/06/18 Attend Phys: Ranjeet Henry Discharge: Date of : 34 Date of Service: 02/08/18 1215 Report #: [id number] regurgitation. Great Vessels The aortic root is normal in size. IVC is normal in size and collapses >50% with inspiration. Pericardium No pericardial effusion. <Conclusion> The left ventricle is normal size. LVEF is 65-70%. Aortic valve is calcified. Trace aortic regurgitation. Mild to moderate aortic stenosis. Vmax 2.17m/s Moderate mitral annular calcification. Mild mitral regurgitation. The tricuspid valve is normal in structure. The pulmonary valve is normal in structure. Trace pulmonic regurgitation. No pericardial effusion. <ELECTRONICALLY SIGNED> By: Marc Lozada MD 02/08/181214 14 14 Marc Lozada MD /INF
[2018-02-06 11:45] LABS: BE(vivo) -0.5 mmol/L (-2 to +3); HCO3 26.2 mmol/L (22.0-26.0); PCO2 51.4 mmHg (35.0-45.0); PO2 69.7 mmHg (80.0-100.0); sO2 92.6 % (92.0-98.0)
[2018-02-06 11:46] LABS: pH 7.325 (7.360-7.450)
[2018-02-06 11:47] LABS: ABSOLUTE NEUTROPHILS 15.3 thou/uL (1.4-8.2); BASOPHILS 0.3 % (0.0-2.0); EOSINOPHILS 0.3 % (0.0-3.0); HEMATOCRIT 40.1 % (37.0-47.0); HEMOGLOBIN 12.6 gm/dL (12.0-15.0); LYMPHOCYTES 5.7 % (24.0-44.0); MCH 24.2 pg (26.0-34.0); MCHC 31.5 g/dL (28.0-37.0); MCV 76.9 fL (80.0-100.0); MONOCYTES 4.6 % (1.0-8.0); PLATELET COUNT 318 thou/uL (150-400); POLYS 89.1 % (36.0-66.0); RBC 5.22 mil/uL (4.20-5.00); RDW 19.7 % (10.5-14.5); WBC 17.2 thou/uL (4.0-11.0)
[2018-02-06 12:06] LABS: ANION GAP 8 mmol/L (7-16); BUN 25 mg/dL (7-18); CALCIUM 9.4 mg/dL (8.5-10.1); CHLORIDE 101 mmol/L (98-107); CO2 29 mmol/L (21-32); CREATININE 1.3 mg/dL (0.6-1.0); GLUCOSE 194 mg/dL (74-106); POTASSIUM 3.9 mmol/L (3.5-5.1); SODIUM 138 mmol/L (136-145)
[2018-02-06 12:11] LABS: ALBUMIN 3.4 g/dL (3.4-5.0); SGOT 79 U/L (15-37); SGPT 107 U/L (30-65); TOTAL BILIRUBIN 0.7 mg/dL (<0.1-1.0); TOTAL PROTEIN 7.7 g/dL (6.4-8.2); TROPONIN-I <0.06 ng/mL (<0.06)
[2018-02-06] MEDS ORDERED: PREDNISONE 5 MG5 M1 PO (20:25)
[2018-02-06] MEDS ORDERED: PRESERVISION T1 EACH PO (20:30)
[2018-02-06] MEDS ORDERED: LEXAPRO20 MG PO (21:05)
[2018-02-06] MEDS ORDERED: SYMBICORT160 MCG/4. INH (21:15)
[2018-02-06] MEDS ORDERED: ZETIA10 MG PO (21:17)
[2018-02-07] VITALS (20 sets, daily range): BP systolic 128–173; BP diastolic 51–127
[2018-02-07 05:11] LABS: ABSOLUTE NEUTROPHILS 4.8 thou/uL (1.4-8.2); BASOPHILS 0.3 % (0.0-2.0); EOSINOPHILS 0.3 % (0.0-3.0); HEMATOCRIT 36.9 % (37.0-47.0); HEMOGLOBIN 11.5 gm/dL (12.0-15.0); LYMPHOCYTES 13.5 % (24.0-44.0); MCH 23.9 pg (26.0-34.0); MONOCYTES 10.8 % (1.0-8.0); POLYS 75.1 % (36.0-66.0); RDW 20.1 % (10.5-14.5); WBC 6.4 thou/uL (4.0-11.0)
[2018-02-07 05:12] LABS: PLATELET COUNT 237 thou/uL (150-400)
[2018-02-07 05:55] LABS: ALBUMIN 2.8 g/dL (3.4-5.0); ANION GAP 3 mmol/L (7-16); BUN 27 mg/dL (7-18); CALCIUM 9.2 mg/dL (8.5-10.1); CHLORIDE 101 mmol/L (98-107); CO2 36 mmol/L (21-32); CREATININE 1.5 mg/dL (0.6-1.0); GLUCOSE 119 mg/dL (74-106); POTASSIUM 3.7 mmol/L (3.5-5.1); SGOT 33 U/L (15-37); SGPT 72 U/L (30-65); SODIUM 140 mmol/L (136-145); TOTAL BILIRUBIN 0.6 mg/dL (<0.1-1.0); TOTAL PROTEIN 6.8 g/dL (6.4-8.2); TROPONIN-I <0.06 ng/mL (<0.06)
[2018-02-07 09:39] LABS: ANISOCYTOSIS 2+; HYPOCHROMASIA 1+
[2018-02-08] VITALS (13 sets, daily range): BP systolic 120–184; BP diastolic 38–71
[2018-02-09 06:15] LABS: CALCIUM 9.4 mg/dL (8.5-10.1); CREATININE 1.3 mg/dL (0.6-1.0); POTASSIUM 4.1 mmol/L (3.5-5.1)
[2018-02-09 07:43] VITALS: BP 140/54
[2018-02-09] MEDS ORDERED: COZAAR 50 MG TA50 M1 PO (10:20)
[2018-02-09] MEDS ORDERED: LASIX 20 MG TAB20 MG PO (10:21)
[2018-02-09] MEDS ORDERED: KLOR-CON 1010 MEQ PO (10:21)
[2018-02-09] MEDS ORDERED: PREDNISONE 10 M10 MG PO (10:22)
[2018-02-09 12:20] VITALS: BP 140/54
== END 2018-02-09 15:36 | disposition home or self-care (01) | DRG 291 ==
LOC: ER 11:19 → ICU 12:09 → EROBS 12:09 → ICU 13:13 → 4E 02-08 13:30
PROVIDERS: Internal Medicine; Nurse Practitioner Family; Pediatrics
DX: I11.0 Hypertensive heart disease with heart failure (principal); J96.21 Acute and chronic respiratory failure with hypoxia; J44.1 Chronic obstructive pulmonary disease with (acute) exacerbation; D68.59 Other primary thrombophilia; I16.0 Hypertensive urgency; I50.33 Acute on chronic diastolic (congestive) heart failure; J84.10 Pulmonary fibrosis, unspecified; I48.0 Paroxysmal atrial fibrillation; R91.8 Other nonspecific abnormal finding of lung field; I27.20 Pulmonary hypertension, unspecified; M16.0 Bilateral primary osteoarthritis of hip; I35.0 Nonrheumatic aortic (valve) stenosis; E78.5 Hyperlipidemia, unspecified; Z96.643 Presence of artificial hip joint, bilateral; Z98.42 Cataract extraction status, left eye; Z90.710 Acquired absence of both cervix and uterus; Z98.41 Cataract extraction status, right eye; Z87.891 Personal history of nicotine dependence; Z79.01 Long term (current) use of anticoagulants; Z79.899 Other long term (current) drug therapy; Z88.8 Allergy status to other drugs, medicaments and biological substances; Z23 Encounter for immunization
CPT/HCPCS: 10183; 10203

== ENCOUNTER → 2018-02-16 | Outpatient (CLI) | payer OTHER ==
[~2018-02-16] MED LIST changes: +COZAAR 50 MG TA50 M1 PO; +LEXAPRO20 MG PO; +PREDNISONE 10 M10 MG PO; +PREDNISONE 5 MG5 M1 PO; +PRESERVISION T1 EACH PO; +SYMBICORT160 MCG/4. INH; +ZETIA10 MG PO
== END ==
LOC: RAD 12:01
DX: J98.11 Atelectasis (principal); J90 Pleural effusion, not elsewhere classified

== ENCOUNTER → 2018-05-25 | Outpatient (CLI) | payer OTHER | LOC: CAT 15:10 | DX: J90 Pleural effusion, not elsewhere classified (principal); J47.9 Bronchiectasis, uncomplicated; J84.9 Interstitial pulmonary disease, unspecified; R59.9 Enlarged lymph nodes, unspecified; N63.20 Unspecified lump in the left breast, unspecified quadrant ==

== ENCOUNTER → 2018-06-03 | Outpatient (CLI) | payer OTHER | LOC: RAD 01:15 | DX: N60.02 Solitary cyst of left breast (principal); I11.0 Hypertensive heart disease with heart failure; I50.9 Heart failure, unspecified; J44.1 Chronic obstructive pulmonary disease with (acute) exacerbation ==

== ENCOUNTER → 2018-09-14 | Outpatient (CLI) | payer OTHER | LOC: CAT 13:23 | DX: R91.1 Solitary pulmonary nodule (principal); J98.4 Other disorders of lung; J90 Pleural effusion, not elsewhere classified; I25.10 Atherosclerotic heart disease of native coronary artery without angina pectoris; K80.20 Calculus of gallbladder without cholecystitis without obstruction; J84.9 Interstitial pulmonary disease, unspecified ==

== ENCOUNTER → 2019-03-29 | Outpatient (CLI) | payer OTHER | LOC: CAT 14:06 | DX: J90 Pleural effusion, not elsewhere classified (principal); R91.8 Other nonspecific abnormal finding of lung field; K80.20 Calculus of gallbladder without cholecystitis without obstruction ==

== ENCOUNTER 2019-05-10 12:51 | Inpatient (IN) | payer OTHER ==
[~2019-05-10] VITALS: Ht 165.1 cm; Wt 80.6 kg
[2019-05-10 13:01] VITALS: BP 159/57
[2019-05-10] MEDS ORDERED: BENICAR20 MG PO (13:42)
[2019-05-10 13:44] LABS: BASOPHILS 0.3 % (0.0-2.0); HEMATOCRIT 33.4 % (37.0-47.0); LYMPHOCYTES 3.2 % (24.0-44.0); MCHC 32.8 g/dL (28.0-37.0); MCV 85.5 fL (80.0-100.0); MONOCYTES 6.9 % (1.0-8.0); PLATELET COUNT 225 thou/uL (150-400); POLYS 89.6 % (36.0-66.0); RBC 3.91 mil/uL (4.20-5.00); RDW 15.5 % (10.5-14.5); WBC 12.3 thou/uL (4.0-11.0)
[2019-05-10] MEDS ORDERED: FLONASE 0.05%50 MCG NARES (13:44)
[2019-05-10] MEDS ORDERED: VITAMIN D35000 UNI2 PO (13:44)
[2019-05-10] MEDS ORDERED: PRESERVISION A1 EAC2 PO (13:45)
[2019-05-10] MEDS ORDERED: PRALUENT P75 MG/1 ML SUBQ (13:45)
[2019-05-10 13:49] LABS: ANION GAP 8 mmol/L (7-16); BUN 37 mg/dL (7-18); CALCIUM 9.2 mg/dL (8.5-10.1); CHLORIDE 99 mmol/L (98-107); CO2 27 mmol/L (21-32); CREATININE 1.6 mg/dL (0.6-1.0); GLUCOSE 153 mg/dL (74-106); POTASSIUM 4.7 mmol/L (3.5-5.1); SODIUM 134 mmol/L (136-145)
[2019-05-10 13:59] LABS: ALBUMIN 2.9 g/dL (3.4-5.0); SGOT 26 U/L (15-37); SGPT 29 U/L (30-65); TOTAL BILIRUBIN 0.6 mg/dL (<0.1-1.0); TOTAL PROTEIN 7.6 g/dL (6.4-8.2); TROPONIN-I <0.06 ng/mL (<0.06)
[2019-05-10 14:53] VITALS: BP 142/71
[2019-05-10 16:08] VITALS: BP 156/66
[2019-05-10 16:29] VITALS: BP 154/52
--- NOTE | 2019-05-10 17:48 | NUR ---
[age] YEAR OLD FEMALE ADMITTED TO 3WEST ROOM 357. PT WAS BROUGHT TO ER FROM HOME AFTER C/O BEING SOA FOR FIVE DAYS. PT ALERT AND ORIENTED TIMES FOUR. VSS. PT DENIES PAIN. C/O SOA WHEN GETTING UP. PT TOLERATED DINNER. PT UP TO RESTROOM WITH ASSIST OF ONE. WILL CONTINUE TO MONITOR.
[2019-05-10 19:06] VITALS: BP 141/49
--- NOTE | 2019-05-10 19:50 | EKG ---
[facility] [place] [address] ELECTROCARDIOGRAM REPORT Name: KAILASH QUINONEZ Room #: 357-P ADM IN M.R.#: [id number] Admission: 05/10/19 Attend Phys: Elvira Esquivel Discharge: Date of : 34 Report #: [id number] THIS REPORT FOR: //name// [facility] ED Test Date: 2019-05-10 Test Time: 13:12:11 Pat Name: KAILASH DEVI Department: Room: 357 Gender: F [employer]: SHEFALI : 1935 Requested By: Kike Nielson Order Number: [id number] MD: Giovanny Armijo Measurements Intervals [place] Rate: 78 P: 66 DE: 148 QRS: 42 QRSD: 89 T: 101 QT: 403 QTc: 460 Interpretive Statements Sinus rhythm Atrial premature complex Probable left atrial enlargement Anteroseptal infarct, age indeterminate Compared to ECG 02/09/2018 07:25:[address] and T wave abnormality is no longer present Electronically Signed On 05-10-2019 19:50:02 NAILHEAD SETTER by Giovanny Armijo [email or web address] <ELECTRONICALLY SIGNED> By: Giovanny Armijo MD, [facility] 05/10/19 1950 11 11 Giovanny Armijo MD, [facility] /EPI
--- NOTE | 2019-05-10 21:16 | NUR ---
PT REPORTED MISSING HEARING AIDE. PT NOT SURE IF SHE LOST IT IN ED OR ON FLOOR. PT AND DAY NURSE ARE NOT SURE IF SHE HAD HEARING AIDE IN ONCE ON 3W. DAUGHTER VERIFIED PT HAD HEARING AIDE IN IN ED. NURSING TRIM SETTER NOTIFIED OF MISSING HEARING AIDE. WILL EMAIL NURSE CORPORATE ACCOUNTANT AND CALL EVS TO LOOK AT LAUNDRY. PT UPDATED RE FOLLOW THROUGH.
--- NOTE | 2019-05-10 21:57 | NUR ---
PT RESTING IN BED WATCHING TV. PT CALLS FOR ASSIST WITH AMBULATION. PT REPORTED SOA WITH AMBULATION AND WANTS TO WEAR O2 NC TO RESTROOM. LUNGS WITH CRACKLES. PTS DAUGHTER VISITED. PT DENIES HAVING FSBS CHECKED ROUTINELY. PREVIOUSLY CHARTED PT MISSING ONE HEARING AIDE.
[2019-05-11 03:38] VITALS: BP 148/57
[2019-05-11 06:40] LABS: CALCIUM 8.7 mg/dL (8.5-10.1); CREATININE 1.6 mg/dL (0.6-1.0); POTASSIUM 3.9 mmol/L (3.5-5.1)
[2019-05-11 09:14] VITALS: BP 190/84
--- NOTE | 2019-05-11 11:09 | 2DMMODE ---
[facility] [address] [place] [address] 2 D/M-MODE ECHOCARDIOGRAM Name: DEVIKAILASH Room #: 357-P ADM IN M.R.#: [id number] Admission: 05/10/19 Attend Phys: Ranjeet Henry Discharge: Date of : 34 Report #: [id number] THIS REPORT FOR: //name// APPROVED REPORT Study performed: 05/11/2019 10:02:04 EXAM: Comprehensive 2D, Doppler, and color-flow Echocardiogram Patient Location: Echo lab Room #: 357 Status: routine BSA: 1.86 HR: 80 bpm BP: 190/84 mmHg Rhythm: NSR/PVCs Other Information Study Quality: Adequate Technically limited study due to Heavy breathing. Indications CHF, aortic stenosis. Hx: Afib, CHF, COPD, HTN. 2D Dimensions RVDd: 37.78 mm IVSd: 12.72 (7-11mm) LVOT Diam: 18.92 (18-24mm) LVDd: 38.14 mm PWd: 10.12 (7-11mm) Ascending Ao: 28.34 (22-36mm) LVDs: 23.35 (25-40mm) Aortic Root: 28.05 mm Volumes Left Atrial Volume (Systole) Single Plane 4CH: 46.92 mL Single Plane 2CH: 75.40 mL LA ESV Index: 36.00 mL/m2 Aortic Valve AoV Peak Simeon.: 2.79 m/s AO Peak Gr.: 31.06 mmHg LVOT Max P.30 mmHg AO Mean Gr.: 16.59 mmHg AO V2 Mean: 1.88 m/s LVOT Max V: 1.44 m/s AO V2 VTI: 47.44 cm MARVA Vmax: 1.45 cm2 [facility] [address] [place] [address] 2 D/M-MODE ECHOCARDIOGRAM Name: KAILASH QUINONEZ Room #: [facility] IN M.R.#: [id number] Admission: 05/10/19 Attend Phys: Ranjeet Henry Discharge: Date of : 34 Report #: [id number] Mitral Valve E/A Ratio: 2.2 MV Decel. Time: 217.70 ms MV E Max Simeon.: 1.63 m/s MV A Simeon.: 0.73 m/s MV PHT: 63.13 ms IVRT: 55.36 ms Pulmonary Valve PV Peak Simeon.: 1.22 m/s PV Peak Gr.: 5.99 mmHg Pulmonary Vein P Vein S: 0.50 m/s P Vein A: 0.39 m/s P Vein D: 0.79 m/s P Vein A Dur.: 110.7 msec P Vein S/D Ratio: 0.63 Tricuspid Valve TR Peak Simeon.: 2.94 m/s RAP Estimate: 5.00 mmHg TR Peak Gr.: 35.00 mmHg PA Pressure: 40.00 mmHg Left Ventricle The left ventricle is normal size. There is normal LV segmental wall motion. Mild concentric left ventricular hypertrophy. Left ventricular systolic function is normal. LVEF is 65-70%. Severe diastolic dysfunction is present (restrictive filling). Right Ventricle The right ventricle is normal size. The right ventricular systolic function is normal. Atria Left atrium is mildly dilated. The right atrium size is normal. Aortic Valve Aortic valve leaflets are moderately thickened and calcified. No aortic regurgitation is present. There is mild to moderate valvular aortic stenosis. Calculated aortic valve area is 1.5 cm2 with maximum pressure gradient of 31 mmHg and mean pressure gradient of 17 mmHg. Mitral Valve Mitral valve leaflets are mildly thickened. Moderate mitral annular calcification. Trace to mild mitral regurgitation. No evidence of mitral valve stenosis. [facility] [address] [place] [address] 2 D/M-MODE ECHOCARDIOGRAM Name: KAILASH QUINONEZ Room #: 357-P [facility] IN .R.#: [id number] Admission: 05/10/19 Attend Phys: Ranjeet Henry Discharge: Date of : 34 Report #: [id number] Tricuspid Valve The tricuspid valve is normal in structure. Mild tricuspid regurgitation. Estimated PAP is 40mmHg. Pulmonic Valve The pulmonary valve is normal in structure. Trace pulmonic regurgitation. Great Vessels The aortic root is normal in size. The ascending aorta is normal in size. IVC is normal in size and collapses >50% with inspiration. Pericardium There is no pericardial effusion. <Conclusion> The left ventricle is normal size. LVEF is 65-70%. Left atrium is mildly dilated. Aortic valve leaflets are moderately thickened and calcified. There is mild to moderate valvular aortic stenosis. Calculated aortic valve area is 1.5 cm2 with maximum pressure gradient of 31 mmHg and mean pressure gradient of 17 mmHg. Mitral valve leaflets are mildly thickened. Moderate mitral annular calcification. Trace to mild mitral regurgitation. The tricuspid valve is normal in structure. Mild tricuspid regurgitation. Estimated PAP is 40mmHg. The pulmonary valve is normal in structure. Trace pulmonic regurgitation. There is no pericardial effusion. <ELECTRONICALLY SIGNED> By: Marc Lozada MD 05/11/19 1108 1108 1108 Marc Lozada MD /INF
[2019-05-11 11:17] VITALS: BP 148/61
--- NOTE | 2019-05-11 12:47 | H ---
[facility] [place] [address] HISTORY AND PHYSICAL Name: KAILASH QUINONEZ Room #: 357-P ADM IN M.R.#: [id number] Admission: 05/10/19 Attend Phys: Elvira Esquivel Discharge: Date of : 33 Report #: [id number] THIS REPORT FOR: //name// CC: Ranjeet Orellana DATE OF SERVICE: 05/10/2019 ATTENDING PHYSICIAN: Dr. Orellana. CHIEF COMPLAINT: Shortness of breath. HISTORY OF PRESENT ILLNESS: The patient is an 83-year-old female who was admitted to the Emergency Room with shortness of breath. For about the last 4 days, she has had progressive shortness of breath with associated chills 2 days ago. She denied any fever and she just had a mild nonproductive cough. Her O2 sats she said on room air yesterday were in the 80s. She normally wears oxygen 2 liters at night. She does have a history of CHF, COPD and heart failure. She was hospitalized with a similar episode in 01/2018 and was treated for congestive heart failure at that time. PAST MEDICAL HISTORY: COPD with pulmonary fibrosis. 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 At this point, chronic diastolic heart failure, aortic stenosis on echo from 01/2018. Atrial fibrillation, on anticoagulation. PAST SURGICAL HISTORY: She has had a hysterectomy, bilateral hip replacements. FAMILY HISTORY: Unknown. SOCIAL HISTORY: Past tobacco history, none currently. No alcohol history. ALLERGIES: SHE IS INTOLERANT TO STATINS. MEDICATIONS: Albuterol nebulizer, Lasix 40 mg, potassium 10 mEq, prednisone 10 mg, Eliquis 5 mg twice a day, Fosamax weekly, Lexapro 20 mg, Benicar 20 mg, Flonase, vitamin D, sotalol 40 mg twice a day, Symbicort 1 puff twice a day. REVIEW OF SYSTEMS: She denies headache, chest pain, abdominal pain, nausea, vomiting, diarrhea, constipation, dysuria, syncope. OBJECTIVE: VITAL SIGNS: Temperature 37.4, pulse 78, respirations 32, blood pressure 154/52, O2 sat 93% on 4 liters nasal cannula. GENERAL: She is awake and alert, lying in bed, in no distress. HEAD AND NECK: Unremarkable, maybe some increased JVD. LUNGS: There are some crackles in the right base. [facility] [address] [place] [address] HISTORY AND PHYSICAL Name: KAILASH QUINONEZ Room #: 357-P [facility] IN M.R.#: [id number] Admission: 05/10/19 Attend Phys: Elvira Esquivel Discharge: Date of : 33 Report #: [id number] HEART: Regular, no murmur. ABDOMEN: Soft, normoactive bowel sounds. EXTREMITIES: No edema. NEUROLOGIC: Motor strength 4/5 throughout. LABORATORY DATA: Reviewed. Her influenza was negative. BNP was 10,000. Troponin negative. Creatinine 1.6. White count was 12. Chest x-ray, right upper lobe consolidating infiltrate, patchy medial basilar atelectasis or pneumonitis as well. ASSESSMENT: 1. Acute on chronic diastolic heart failure. 2. Chronic obstructive pulmonary disease exacerbation. 3. Acute kidney injury, likely on chronic kidney disease. 4. Severe protein-calorie malnutrition. 5. Hypertension. 6. History of atrial fibrillation. 7. Chronic anticoagulation with Eliquis. PLAN: I will continue her home medications plus and empiric antibiotics. She has received steroids in the ER and order additional dose of diuretic clinically and by history, she also describes increased weight gain in the last couple of days, so this may be more of a CHF exacerbation. Follow up repeat echocardiogram has been ordered to assess her aortic stenosis. <ELECTRONICALLY SIGNED> By: Jeb Salazar MD 05/11/19 1247 [id number] 1732 Jeb Salazar MD /nt
--- NOTE | 2019-05-11 13:31 | NUR ---
PT ADMITTED RELATED TO CHF, COPD. CM REVIEWED CHART AND SPOKE WITH CARE TEAM. CM MET WITH PT AT BEDSIDE THIS DAY. PT IS A&O X4. CM ROLE INTRODUCED. PT INDICATED SHE LIVES ALONE IN A [place]. 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 PT INDICATED SHE HAS HOME O2 THAT SHE USUALLY ONLY USES NOC AT 2L BUT THAT SHE HAD BEEN USING IT MORE ARCHIVES TECHNICIAN. PT NOW ON 5L CONTINUOUS. PT INIDCATED SHE ALSO HAS A PORTABLE INOGEN TAKE AND SHE THINKS HER HOME O2 IS THROUGH [facility]. PT ALSO HAS HOME NEBULIZER. PT INIDCATED SHE HAS TWO DTRS WHO LIVE LOCALLY AND THAT ASSIST HER. PT INIDCATED NO HH HX BUT THAT SHE HAD DONE PULM REHAB HERE AT [facility] IN THE PAST WELL A SILVER SNEAKER PROGRAM. PT INDICATED SHE HOPES TO BE ABLE TO RETURN HOME ONCE MEDICALLY STABLE. CM TO FOLLOW INDICATED WITH DC PLANNING.
[2019-05-11 16:06] VITALS: BP 147/73
--- NOTE | 2019-05-11 17:58 | NUR ---
ASSUMED PATIENT CARE AT 0700. A/O X4 CONFUSED SONETINES. ON 4L/NC . SOB WITH EXERTION. UP STANDBY. SLOWLY TOWARDS POC GOALS.
[2019-05-11 19:07] VITALS: BP 135/72
[2019-05-11 23:15] VITALS: BP 122/78
--- NOTE | 2019-05-12 03:00 | NUR ---
6 Beat run VTACH, patient asleep, asymptomatic when awakened. States she was dreaming. Bp 180/85 HR 86. Reported to Genesis Estrella NP. Orders received.
--- NOTE | 2019-05-12 03:44 | NUR ---
Patient making progress towards outcome goals. Oxygen titrated down to 2L/NC sat 92-93%. Patient states she feels better overall. Ambulated around unit. Rhythm irregular and ricco rate 40's after beta alexia. Vital signs stable. Patient asymptomatic. High fall risks, fall precautions in place. Denies pain. Blood sugars elevated on Solumedrol, reported to Dr Salazar with orders to start on sliding scale insulin.
[2019-05-12 04:34] VITALS: BP 147/63
--- NOTE | 2019-05-12 05:08 | NUR ---
Unable to measure output accurately, patient missing hat in bathroom.
[2019-05-12 05:18] LABS: CALCIUM 8.9 mg/dL (8.5-10.1); CREATININE 1.5 mg/dL (0.6-1.0); POTASSIUM 4.4 mmol/L (3.5-5.1)
[2019-05-12 08:11] VITALS: BP 143/73
--- NOTE | 2019-05-12 12:55 | NUR ---
SW reviewed chart and spoke with nursing and attending physician. Pt is progressing towards goals for discharge. Steroids being tapered. IV lasix changed to PO. Pt is normally on 2L of O2 at home. Plan is for pt to discharge home when medically stable. SW is following to assist as needed with discharge planning.
[2019-05-12 15:27] VITALS: BP 147/71
[2019-05-12 19:10] VITALS: BP 142/64
--- NOTE | 2019-05-12 19:17 | NUR ---
ASSUMED PATIENT CARE AT 0700. A/0 X4. AMBULATED IN HALLWAY. TITRATED 02 TO 2L. DENIES PAIN. NOTED 20BIT VT AT 1740. NEW ORDER RECEIVED FROM DR EVANGELISTA. WILL KEEP MONITOR.
[2019-05-12 19:35] LABS: CALCIUM 9.1 mg/dL (8.5-10.1); CREATININE 1.8 mg/dL (0.6-1.0); MAGNESIUM 2.2 mg/dL (1.8-2.4); POTASSIUM 4.1 mmol/L (3.5-5.1)
--- NOTE | 2019-05-12 20:07 | NUR ---
Assumed pt care @1915. pt concerened about lipid level and wanted it checked. Dr Salazar called and orders recieved. results from electrolyte panel wnl and communicated to Dr Salazar.
[2019-05-12 20:21] LABS: CHOLESTEROL 118 mg/dL (<200); HDL CHOLESTEROL 27 mg/dL (>40); LDL CHOLESTEROL 59 mg/dL (<100); TC:HDL 4.4 Ratio (Not establshd); TRIGLYCERIDE 160 mg/dL (<150); VLDL 32 mg/dL (<40)
[2019-05-12 20:26] LABS: SERUM ASSESSMENT Clear
[2019-05-13 04:32] VITALS: BP 161/78
[2019-05-13 07:20] VITALS: BP 182/64
--- NOTE | 2019-05-13 13:47 | NUR ---
SW reviewed chart and spoke with nursing. Pt is slowly progressing towards goals for discharge. No weekend discharge planned. Plan is for pt to discharge home when medically stable. SOFIA is following to assist as needed with discharge planning.
[2019-05-13 15:06] VITALS: BP 144/48
--- NOTE | 2019-05-13 16:54 | NUR ---
Assumed care approx. 0700 this AM. Pt ALOx4 but noted to be confused and forgetful at times; pt has trouble understanding what she is being told occassionally. Pt tried coming off oxygen this morning but O2 sat was 87-88%, pt back on 2LNC. Pt said she is coughing up sputum with a little blood tinge, but has yet to be seen by nursing. Will continue to monitor. Pt slightly progressing toward plan of care goals.
[2019-05-13 19:22] VITALS: BP 147/69
[2019-05-13 22:07] LABS: ADENOVIRUS Negative (Negative); INFLUENZA A Negative (Negative); INFLUENZA B Negative (Negative); METAPNEUMOVIRUS Negative (Negative); PARAINFLUENZA 1 Negative (Negative); PARAINFLUENZA 2 Negative (Negative); PARAINFLUENZA 3 Negative (Negative); RHINOVIRUS Negative (Negative); RSV A Negative (Negative); RSV B Negative (Negative)
--- NOTE | 2019-05-14 02:31 | NUR ---
CONTINUES ON 2.0 LITERS OF OXYGEN. DENIES PAIN. EASILY AMBULATES TO THE RESTROOM WITH ASSIST OF 1 PERSON AND WALKER. NO DISCHARGE PLAN CONCERNS. RESTING QUIETLY, CALLS FOR ASSIST OUT OF BED.
[2019-05-14 04:52] VITALS: BP 177/83
[2019-05-14 06:13] LABS: CALCIUM 9.3 mg/dL (8.5-10.1); CREATININE 1.5 mg/dL (0.6-1.0); POTASSIUM 4.7 mmol/L (3.5-5.1)
[2019-05-14 07:04] VITALS: BP 171/82
[2019-05-14 11:57] VITALS: BP 173/61
[2019-05-14 15:05] VITALS: BP 148/61
--- NOTE | 2019-05-14 16:50 | NUR ---
Assumed care approx. 0700 this AM. Pt ALOx4 with intermitt. confusion. Pt remains on 2LNC and tolerating well. Pt got up and walked around unit with walker today; pt tolerated well. Blood pressures have been high; Dr. Kimball notified this morning during rounds. Dr. Kimball called around lunch time after morning meds had been given with no change in blood pressure: Amlodipine 5 mg daily started. No other changes noted. Pt reports not SOB. Pt progressing toward plan of care goals.
[2019-05-14 19:15] VITALS: BP 162/60
[2019-05-15 03:45] VITALS: BP 140/54
--- NOTE | 2019-05-15 06:22 | NUR ---
resting quietly tonight. denies pain. no concerns voiced. calls appropriately. denies discharge concerns.
[2019-05-15 07:02] VITALS: BP 187/76
[2019-05-15 15:04] VITALS: BP 159/65
--- NOTE | 2019-05-15 17:08 | NUR ---
ASSUMED CARE OF PT AT 0700. PT AOX4 IN NO ACUTE DISTRESS. HYPERTENSIVE THIS AM - CHANGES MADE TO MEDS PER PHYSICIAN. O2 PRN. CALLS OUT APPROPRIATELY. NO OTHER REMARKABLE CHANGES TO REPORT. ANTICIPATE D/C TOMORROW.
[2019-05-15 19:05] VITALS: BP 169/67
--- NOTE | 2019-05-15 21:49 | NUR ---
PT IS SITTING UP COUGHING, DRY COUGH. HAVING SOME PAIN WITH COUGHING IN FLANK AREA. INSTRUCTED TO DRINK FLUIDS, AND CALL FOR ASSIST OUT OF BED.
[2019-05-16 03:41] VITALS: BP 178/80
--- NOTE | 2019-05-16 04:39 | NUR ---
CALLS FOR ASSIST OUT OF BED. DENIES NEED FOR PAIN MEDICATION, SHE HAS OCCASSIONAL PAIN WITH FORCFUL COUGHING. NO DISCHARGE CONCERNS VOICED.
[2019-05-16 07:32] VITALS: BP 186/86
--- NOTE | 2019-05-16 13:33 | NUR ---
SOFIA reviewed chart and spoke with nursing. Pt remains on IV abx. Pt is on PO steroids. Pt is progressing towards goals for discharge home. SOIFA met with pt at bedside to provide update and discuss discharge plan. Pt states she has home O2 in place and would like info on housekeeping services. SW provided pt with [employer] for review. Plan is for pt to discharge home when medically stable. SOFIA is following to assist as needed with discharge planning.
[2019-05-16 16:05] VITALS: BP 153/66
[2019-05-16 19:15] VITALS: BP 149/66
--- NOTE | 2019-05-16 19:56 | NUR ---
PATIENT UP WITH ASSIST TO BATHROOM AND BACK TO BED. USES WALKER WITH A SLOW BUT STEADY GAIT. STATES SHE FEELS MUCH BETTER. WILL CONT WITH PLAN OF CARE.
[2019-05-17 04:30] VITALS: BP 188/82
--- NOTE | 2019-05-17 05:14 | NUR ---
Pt. slept fair during the night. Tolerating room air well then O2 at 2L/NC at HS which is her baseline from home. No respiratory distress. Voiding per bathroom. Progressing towards care plan goals.
[2019-05-17 06:24] LABS: CALCIUM 9.8 mg/dL (8.5-10.1); CREATININE 1.3 mg/dL (0.6-1.0); POTASSIUM 5.5 mmol/L (3.5-5.1)
[2019-05-17 08:04] VITALS: BP 188/80
--- NOTE | 2019-05-17 11:14 | NUR ---
Nutrition: Pt admitted with SOA and COPD exacerbation. Seen due to LOS. Decreased intake indicated on admission assessment however pt is eating 100% of all meals/snacks and reports she is cleaning her plate. On prednisone, lasix. BG 126-249 with no hx of DM. Discussed adding carb controlled to diet order and pt states she is D/C today. Does not use sugar and at times controls carbs for weight loss, watches Na+ intake and reads labels, uses salt sub. Weights in the 170s back to 2018 although pt feels she has gained a few # recently. Discussed basic weight loss tips with pt. She was resistant to RD recommendations regarding decreasing use of butter for seasoning. Other suggestions offered. Place pt as low nutrition risk.
[2019-05-17 11:50] VITALS: BP 149/65
[2019-05-17] MEDS ORDERED: LASIX 20 MG TAB20 MG PO (12:23)
[2019-05-17] MEDS ORDERED: PREDNISONE 5 MG5 M1 PO (12:24)
[2019-05-17] MEDS ORDERED: AZITHROMYCIN500 MG PO (12:25)
[2019-05-17 13:45] VITALS: BP 149/65
[2019-05-17 15:57] VITALS: BP 149/65
--- NOTE | 2019-05-17 15:58 | NUR ---
Assumed care approx. 0700 this AM. BP high this morning-scheduled meds given. BP rechecked with SBP in the 140's. Discharge orders obtained. IV and tele dc'd. Scripts sent to pharm by physician. Discharge packet and new meds discussed with patient. Pt diet and daily weight also discussed. Pt verbalized understanding and communicated instructions back to nurse. All belongings noted to be with patient. Pt left unit by wheelchair with son at 1555.
[2019-05-17 16:02] VITALS: BP 149/65
--- NOTE | 2019-05-17 16:05 | NUR ---
DISCHARGE NOTE: SW reviewed chart and spoke with nursing and attending physician. Pt is medically stable for discharge home today. SW met with pt at bedside. Pt has transportation home. No discharge needs identified at this time, but is available to assist should needs arise.
--- NOTE | 2019-05-31 13:22 | D ---
[facility] [place] [address] DISCHARGE SUMMARY Name: KAILASH QUINONEZ Room #: 357-[facility] IN M.R.#: [id number] Admission: 05/10/19 Attend Phys: Elvira Esquivel Discharge: 05/17/19 Date of : 34 Report #: [id number] THIS REPORT FOR: //name// CC: Ranjeet Orellana FINAL DIAGNOSES: 1. Chronic obstructive pulmonary disease exacerbation. 2. Hypertension. 3. Prerenal azotemia. 4. Hyperkalemia. HOSPITAL COURSE: The patient was admitted with shortness of breath. She was treated for COPD exacerbation. She was hypoxic and was requiring oxygen. Her other home medications were continued. She received additional doses of Lasix initially. There was a question of congestive heart failure, but really there was no clinical improvement with additional diuretic, I concluded that this was a COPD exacerbation. She responded to steroids, antibiotics and nebulized treatments. Slowly her medications were switched to an oral route. Follow up lab data revealed elevated potassium and her supplement was discontinued. She had some mild prerenal azotemia and I instructed her to hold her Lasix at home for several days with followup lab data in 2 days' time. Creatinine on the day of discharge is 1.3, but BUN was up to 48. PHYSICAL EXAMINATION: GENERAL: On the day of discharge, she was awake and alert, in no distress. LUNGS: Clear with no wheezing. HEART: Regular. ABDOMEN: Soft, normoactive bowel sounds. EXTREMITIES: No edema. DISPOSITION: She is discharged to home with diabetic diet, activity as tolerated. Follow up with Dr. Orellana in 2 weeks. She has a standing appointment with Dr. Armijo next week. I have asked her to come in 2 days for BMP. DISCHARGE MEDICATIONS: Prednisone taper, Zithromax, resume sotalol, Eliquis, vitamins, nebulizers, Symbicort, Benicar, stop potassium and she will resume Lasix on 05/21/2019. <ELECTRONICALLY SIGNED> By: Jeb Salazar MD 05/31/19 1322 1303 1312 Jeb Salazar MD /nt
== END 2019-05-17 16:11 | disposition home or self-care (01) | DRG 190 ==
LOC: ER 12:51 → EROBS 15:23 → 3W 15:23 → ENTRNSPT 05-17 15:47 → 3W 05-17 16:11
PROVIDERS: Emergency Medicine; Internal Medicine Geriatric Medicine; ADMIT Internal Medicine
DX: J44.1 Chronic obstructive pulmonary disease with (acute) exacerbation (principal); J96.91 Respiratory failure, unspecified with hypoxia; E43 Unspecified severe protein-calorie malnutrition; N17.9 Acute kidney failure, unspecified; I11.0 Hypertensive heart disease with heart failure; I48.91 Unspecified atrial fibrillation; J84.10 Pulmonary fibrosis, unspecified; I35.0 Nonrheumatic aortic (valve) stenosis; R79.89 Other specified abnormal findings of blood chemistry; E87.5 Hyperkalemia; Z96.643 Presence of artificial hip joint, bilateral; Z88.8 Allergy status to other drugs, medicaments and biological substances; Z99.81 Dependence on supplemental oxygen; Z98.42 Cataract extraction status, left eye; Z98.41 Cataract extraction status, right eye; Z90.710 Acquired absence of both cervix and uterus; Z87.891 Personal history of nicotine dependence; Z79.01 Long term (current) use of anticoagulants; Z79.899 Other long term (current) drug therapy; Z68.29 Body mass index [BMI] 29.0-29.9, adult
CPT/HCPCS: 10879

== ENCOUNTER → 2019-05-23 | Outpatient (CLI) | payer OTHER ==
[~2019-05-23] MED LIST changes: +AZITHROMYCIN500 MG PO; +BENICAR20 MG PO; +FLONASE 0.05%50 MCG NARES; +PRALUENT P75 MG/1 ML SUBQ; +PRESERVISION A1 EAC2 PO; +VITAMIN D35000 UNI2 PO
== END ==
LOC: SJCVCIMAG 12:13
DX: I21.19 ST elevation (STEMI) myocardial infarction involving other coronary artery of inferior wall (principal); R94.31 Abnormal electrocardiogram [ECG] [EKG]; I48.0 Paroxysmal atrial fibrillation; I35.0 Nonrheumatic aortic (valve) stenosis; I65.23 Occlusion and stenosis of bilateral carotid arteries; J84.10 Pulmonary fibrosis, unspecified; I11.0 Hypertensive heart disease with heart failure; I50.9 Heart failure, unspecified; J44.9 Chronic obstructive pulmonary disease, unspecified; E78.5 Hyperlipidemia, unspecified; Z90.710 Acquired absence of both cervix and uterus; Z96.643 Presence of artificial hip joint, bilateral; Z87.891 Personal history of nicotine dependence; Z79.51 Long term (current) use of inhaled steroids; Z79.2 Long term (current) use of antibiotics; Z79.899 Other long term (current) drug therapy; Z85.41 Personal history of malignant neoplasm of cervix uteri

== ENCOUNTER 2019-06-17 07:50 | Inpatient (IN) | payer OTHER ==
[~2019-06-17] VITALS: Ht 165.1 cm; Wt 76.7 kg
[2019-06-17 07:52] VITALS: BP 189/125
[2019-06-17 09:16] LABS: BASOPHILS 0.8 % (0.0-2.0); EOSINOPHILS 0.2 % (0.0-3.0); HEMATOCRIT 34.8 % (37.0-47.0); HEMOGLOBIN 11.2 gm/dL (12.0-15.0); LYMPHOCYTES 13.9 % (24.0-44.0); MCH 27.6 pg (26.0-34.0); MCHC 32.1 g/dL (28.0-37.0); MCV 85.8 fL (80.0-100.0); MONOCYTES 9.2 % (1.0-8.0); PLATELET COUNT 292 thou/uL (150-400); POLYS 75.9 % (36.0-66.0); RBC 4.05 mil/uL (4.20-5.00); RDW 17.1 % (10.5-14.5); WBC 5.2 thou/uL (4.0-11.0)
[2019-06-17 09:26] LABS: ANION GAP 8 mmol/L (7-16); BUN 20 mg/dL (7-18); CALCIUM 9.4 mg/dL (8.5-10.1); CHLORIDE 100 mmol/L (98-107); CO2 29 mmol/L (21-32); CREATININE 1.3 mg/dL (0.6-1.0); GLUCOSE 150 mg/dL (74-106); POTASSIUM 3.7 mmol/L (3.5-5.1); SODIUM 137 mmol/L (136-145)
[2019-06-17 09:30] LABS: PROTIME 10.1 Seconds (9.3-11.4)
[2019-06-17 09:36] LABS: ALBUMIN 3.3 g/dL (3.4-5.0); LIPASE 271 U/L (73-393); SGOT 21 U/L (15-37); SGPT 24 U/L (30-65); TOTAL BILIRUBIN 0.5 mg/dL (<0.1-1.0); TOTAL PROTEIN 6.9 g/dL (6.4-8.2); TROPONIN-I <0.06 ng/mL (<0.06)
[2019-06-17 13:21] LABS: URINE BILIRUBIN NEGATIVE (Negative); URINE BLOOD NEGATIVE (Negative); URINE CLARITY CLEAR; URINE COLOR YELLOW; URINE GLUCOSE-RANDOM* NEGATIVE (Negative); URINE KETONES NEGATIVE (Negative); URINE LEUKOCYTES-REFLEX TRACE (Negative); URINE NITRITE-REFLEX NEGATIVE (Negative); URINE PROTEIN (DIPSTICK) NEGATIVE (Negative); URINE UROBILINOGEN 0.2 E.U./dl (0.2-1.0)
[2019-06-17 13:44] VITALS: BP 174/71
[2019-06-17 14:17] VITALS: BP 168/92
[2019-06-17 15:20] VITALS: BP 158/74
--- NOTE | 2019-06-17 16:34 | EKG ---
[facility] [place] [address] ELECTROCARDIOGRAM REPORT Name: KAILASH QUINONEZ Room #: 453-P ADM IN M.R.#: [id number] Admission: 06/17/19 Attend Phys: Elvira Esquivel Discharge: Date of : 34 Report #: [id number] THIS REPORT FOR: cc: Ranjeet Orellana MD, Christopher B. MD Park, Jin S. MD ~ THIS REPORT FOR: //name// [facility] ED Test Date: 2019-06-17 Test Time: 08:37:51 Pat Name: KAILASH DEVI Department: Room: [facility] Gender: F Carpenter Supervisor: ZOHRA : 1935 Requested By: Nathan Moody Order Number: [id number] : Robby Conte Measurements Intervals [place] Rate: 76 P: 81 VA: 157 QRS: 38 QRSD: 89 T: 154 QT: 400 QTc: 450 Interpretive Statements Sinus rhythm Ventricular premature complex Probable left atrial enlargement Anteroseptal infarct, old Repol abnrm suggests ischemia, lateral leads Compared to ECG 05/10/2019 13:12:11 Ventricular premature complex(es) now present Early repolarization now present Possible ischemia now present Atrial premature complex(es) no longer present Myocardial infarct finding still present Electronically Signed On 06-17-2019 16:33:18 DEPARTMENT OF MATHEMATICS CHAIR by Robby Conte [email or web address] <ELECTRONICALLY SIGNED> By: Robby Conte MD 06/17/19 1633 Robby Conte MD /EPI
--- NOTE | 2019-06-17 19:15 | NUR ---
Received pt from the IR, with cholecystostomy tube on the right upper quardant gravity bag in place draining serosanguinous fluid (80cc). Pt has been npo, pain managed with medications. Wounds that loo like skin tears founbd on both shins, pt statted she w3as trying to get up on a bus yesterday and she slipped. Wound nurse consulted, wound dressing done to protect the wound. Pain noted was on the incision site. POC followed no signs or verbalizations of distress have been noted. Pt stated she was not able to sleep the whole night before coming in due to the4 pain. Daughter was at the bedside and will be back tomorrow. Endorsed to the night nurse.
[2019-06-18 06:06] LABS: HEMATOCRIT 33.2 % (37.0-47.0); HEMOGLOBIN 10.8 gm/dL (12.0-15.0); MCH 28.1 pg (26.0-34.0); MCHC 32.7 g/dL (28.0-37.0); MCV 85.9 fL (80.0-100.0); RBC 3.86 mil/uL (4.20-5.00); RDW 17.8 % (10.5-14.5); WBC 4.7 thou/uL (4.0-11.0)
[2019-06-18 06:24] LABS: ALBUMIN 2.4 g/dL (3.4-5.0); CALCIUM 8.4 mg/dL (8.5-10.1); CREATININE 1.2 mg/dL (0.6-1.0); POTASSIUM 3.6 mmol/L (3.5-5.1); TOTAL BILIRUBIN 0.4 mg/dL (<0.1-1.0); TOTAL PROTEIN 5.6 g/dL (6.4-8.2)
[2019-06-18 07:25] VITALS: BP 128/65
[2019-06-18 15:44] VITALS: BP 137/49
--- NOTE | 2019-06-18 16:36 | NUR ---
Assumed pt care this am, was on NPO. VS stable. Pt is a standby assists and is able to ambulate from the bed to the toilet and back with ease. Drain on the RUQ of the abdomen draining serous fluid. Orders for full liquid and IVF to run at [address] Zarate. Pain is at a minimal and pt has not complained not are there any signs or symptoms of distress. POC followed.
[2019-06-18 20:18] VITALS: BP 132/46
[2019-06-19 08:00] VITALS: BP 150/49
--- NOTE | 2019-06-19 18:37 | NUR ---
Assumed patient care at 0715. Vital signs are stable; she denies pain. Patient has a Biliary Drain to the RUQ of Abdomen. Output of serosanquinious fluid was 20cc for this shift. Dr Zarate here today. IV fluids discontinued. Per patient, "Dr Zarate said that I am probably going home tomorrow." Patient has had no adverse reactions to the IV Antibiotic Therapy. Her IV did come out while she was in the restroom. As of this time, it appears that this patient has completed her IV Antibiotic Therapy, therefore, she has no immediate reason for a replacement IV (nor does she want one). Patient has been pleasant and cooperative, is alert and oriented x's 4. Will report to on-coming RN.
[2019-06-19 20:25] VITALS: BP 141/66
--- NOTE | 2019-06-20 02:23 | NUR ---
PATIENT AOX3 MAKES NEEDS KNOWN. PATIENT CALM AND COOPERATIVE WITH MEDS AND CARE.PATIENT IS ON ROOM AIR NO SHORTNESS OF AIR OR DISTRESS NOTED THIS SHIFT. PATIENT HAS A BILIARY DRAINAGE WITH MINIMUM DRAINAGE, SITE AND DRESSING AROUND THE BILIARY DRAIN IS C/D/I. PATIENT DENIED PAIN OR DISCOMFORT. PATIENT IN BED ASLEEP AT THIS TIME BREATHING REGULAR AND UNLABOURED.
[2019-06-20 08:00] VITALS: BP 124/91
--- NOTE | 2019-06-20 11:07 | NUR ---
WOUND CARE CONSULT PT ALERT, COOPERATIVE, STATES SHE ACCIDENTLY TORE SKIN ON BOTH SHINS TRYING TO INTO A BUS, SKIN TEARS NOTED, HEALING, MINIMAL DRAINAGE, SEE PROCESS INTERVENTIONS FOR DETAILS, C/O MILD TENDERNESS BOTH WOUNDS, NO S/S INFECTION, NO ERYTHEMA NOTED RECOMMENDATIONS; CLEANSE W/ WOUND CLEANSER OR NS, XEROFORM GAUZE, COVER W/ PLAIN GAUZE, SECURE W/ PAPER TAPE, PT WANTS TO WEAR OWN NYLON STOCKINGS TO HOLD IN PLACE, INFORMED TUBIGRIP STOCKINGS AVAILABLE IF NEEDED, CHANGE 3XWEEK AND PRN UPHOLSTERY AUTO TRIMMER INFORMED
--- NOTE | 2019-06-20 11:52 | NUR ---
INITIAL ASSESSMENT: SW reviewed chart and spoke with nursing. Pt was admitted from home due to acute cholecystitis. Pt has biliary drain in place. SW met with pt at bedside. Introduced role of SW. Pt is alert/orientated x 4. Pt reports she lives at home alone. Prior to admission, pt was independent with ADLs. Pt has home O2 through [employer] for nocturnal O2. Pt also has a portable O2 concentrator through [employer]. No hx of HH services or post-acute placement. Pt's PCP is Dr. Ranjeet Orellana. SW offered to arrange HH services at time of discharge for drain care. Pt states that she should be okay to return home and will manage her drain. Pt states that she will have her gall bladder out in a few weeks per surgery. SW is following to assist as needed with discharge planning.
--- NOTE | 2019-06-20 13:43 | H ---
[facility] [place] [address] HISTORY AND PHYSICAL Name: KAILASH QUINONEZ Room #: 453-P ADM IN M.R.#: [id number] Admission: 06/17/19 Attend Phys: Elvira Esquivel Discharge: Date of : 34 Report #: [id number] THIS REPORT FOR: cc: Ranjeet Orellana MD,Jeb Grissom MD, MD ~ CC: Ranjeet Orellana DATE OF SERVICE: 06/17/2019 CHIEF COMPLAINT: Abdominal pain. HISTORY OF PRESENT ILLNESS: The patient is an 83-year-old female who presented to the Emergency Room with abdominal pain. She said symptoms began around 9:00 last night pain in the epigastric and right upper quadrant area. She tried reposition and take her medicines, but then became concerned with her blood pressure as well. She took several blood pressure readings at home and said her highest was 220/118. She took her valsartan and furosemide. She has continued to have pain in the right upper quadrant and came to the Emergency Room. CT and ultrasound have revealed cholelithiasis and suspected cholecystitis. PAST MEDICAL HISTORY: Chronic congestive heart failure, cardiomyopathy, atrial fibrillation, chronic anticoagulation with Eliquis, COPD, history of mild aortic stenosis, history of pulmonary fibrosis. PAST SURGICAL HISTORY: Unknown. FAMILY HISTORY: Noncontributory. SOCIAL HISTORY: She lives at home. No chronic alcohol or tobacco use. ALLERGIES: STATINS. MEDICATIONS: Eliquis, Fosamax, Lexapro, Benicar, sotalol, vitamin D, DuoNeb, Lasix. REVIEW OF SYSTEMS: Denies headache, chest pain, shortness of breath, abdominal pain, nausea, vomiting, diarrhea, constipation, dysuria, syncope. She complains of general muscle weakness, especially proximal muscle groups. OBJECTIVE: VITAL SIGNS: Temperature 36.6, pulse 76, respirations 22, blood pressure 189/125-174/71, O2 sat 93-99% on room air. GENERAL: She is awake and alert, lying in bed, in no distress. HEAD AND NECK: Unremarkable. LUNGS: Clear. [facility] [address] [place] [address] HISTORY AND PHYSICAL Name: KAILASH QUINONEZ Room #: 453-P [facility] IN M.R.#: [id number] Admission: 06/17/19 Attend Phys: Elvira Esquivel Discharge: Date of : 33 Report #: [id number] HEART: Regular. ABDOMEN: Soft, normoactive bowel sounds. She is tender in the right upper quadrant with palpation. EXTREMITIES: No cyanosis, clubbing or edema. NEUROLOGIC: Cranial nerves intact. Speech is fluent. Global strength 4/5 throughout. LABORATORY DATA: Bilirubin was normal. White count normal. Abdominal ultrasound, CT abdomen, chest x-ray reviewed. ASSESSMENT: 1. Cholecystitis. 2. Right upper quadrant abdominal pain due to the above. 3. Chronic obstructive pulmonary disease. 4. Atrial fibrillation. 5. Chronic anticoagulation. Her last dose of Eliquis was last night per her report. 6. Hypertension. 7. Chronic congestive heart failure. PLAN: I will continue her medications from home except holding her Eliquis for now. Dr. Zarate has been consulted in regard to the cholecystitis ____ Dr. Baird followed her as well for her history of pulmonary disease. <ELECTRONICALLY SIGNED> By: Jeb Salazar MD 06/20/19 1343 1204 1222 Jeb Salazar MD /nt
[2019-06-20 15:36] VITALS: BP 136/43
--- NOTE | 2019-06-20 17:37 | NUR ---
Assumed patient care at 0715. Vital signs have been stable; she denies pain. Patient is compliant, pleasant and is alert and oriented x's 4. She uses Oxygen at 1-2 Liters per nasal cannula prn. Patient has been getting up at sundar without assistance. Minimal output from biliary drain today. Plan is to Discharge patient back home tomorrow. Will continue to monitor and report to on-coming nurse.
[2019-06-20 19:37] VITALS: BP 128/57
--- NOTE | 2019-06-21 01:04 | NUR ---
PATIENT AOX4 MAKES NEEDS KNOWN. PATIENT DENIED PAIN OR DISCOMFORT. PATIENT HAS BILI DRAIN WITH MINIMUM SEROSANGUINEOUS DRAINAGE. PATIENT HAS BILATERAL CHURCH WOUNDS ON BLE,DRESSING IS C/D/I. PATIENT IS ON 2L OXYGEN PRN. PATIENT AMBULATES TO THE BATHROOM WITH STEADY GAITS. PATIENT IS UP AT MICHELLE. PATIENT IN BED ASLEEP AT THIS TIME BREATHING REGULAR AND UNLABOURED.
[2019-06-21 07:05] VITALS: BP 143/84
--- NOTE | 2019-06-21 10:51 | NUR ---
DISCHARGE PLANNING. HOME WITH HOME HEALTH SERVICES PLANNED FOR TODAY. PATIENT REFERRAL FA[facility]ED TO [facility] PER REQUEST. CALL PLACED TO [facility], SPOKE WITH ALEX. PLASCENCIA TO FACILITATE ONCE PATIENT DISCHARGE/HOME HEALTH ORDERS OBTAINED.
--- NOTE | 2019-06-21 10:52 | NUR ---
Received awake on bed. Due medications given as prescribed, able to swallow meds w/o difficulty. On room air; using O2 at 1-2 lpm via NC as needed. On heart healthy diet- tolerating well; no nausea, no vomiting and no abdominal pain. No IV noted. With Bilidrain in place- output measured and recorded accordingly. With bilateral woods wounds, dressing C/D/I. Assisted in ADLs. For possible discharge today- a/w CM input.
[2019-06-21 12:54] VITALS: BP 143/84
--- NOTE | 2019-06-21 13:18 | NUR ---
SOFIA reviewed chart and spoke with nursing. Pt has drain in place and may discharge home later today. Awaiting physician input. SOFIA met with pt at bedside to provide update and discuss HH services for drain care. Pt is hoping she will be able to manage the drain herself with instructions from nursing. Pt is agreeable with HH referral. Options provided. No preference voiced. transit planner to fax HH referral to [facility]. Awiating final discharge orders. Contact info for HH placed in pt's discharge summary. Pt will have transportation home when discharged. SOFIA is following to assist as needed with discharge planning.
--- NOTE | 2019-06-22 14:07 | D ---
[facility] [place] [address] DISCHARGE SUMMARY Name: KAILASH QUINONEZ Room #: 453-P [facility] IN M.R.#: [id number] Admission: 06/17/19 Attend Phys: Elvira Esquivel Discharge: 06/21/19 Date of : 34 Report #: [id number] THIS REPORT FOR: cc: Ranjeet Orellana MD,Jeb Grissom MD, MD ~ THIS REPORT FOR: //name// CC: Ranjeet Orellana FINAL DIAGNOSES: 1. Acute cholecystitis. 2. Chronic obstructive pulmonary disease. HOSPITAL COURSE: The patient was admitted with abdominal pain. She was diagnosed with acute cholecystitis. Dr. Zarate assessed her and recommended IR placement of a VICTOR HUGO drain. She tolerated this without incident and her abdominal pain resolved. She was eating a regular diet and otherwise remained medically stable. The plan will be for cholecystectomy a later date. PHYSICAL EXAMINATION: GENERAL: On the day of discharge, she was awake and alert, in no distress. LUNGS: Clear. HEART: Regular. ABDOMEN: Soft, normoactive bowel sounds. EXTREMITIES: No edema. DISPOSITION: She is discharged to home with home health. Diet and activity as tolerated, resume all home medications. She has a VICTOR HUGO cholecystostomy drain to be managed by home health. Followup with Dr. Orellana and Dr. Zarate in 2 weeks. <ELECTRONICALLY SIGNED> By: Jeb Salazar MD 06/22/19 1407 1355 1430 Jeb Salazar MD /corinne
== END 2019-06-21 15:48 | disposition home health service (06) | DRG 445 ==
LOC: ER 07:50 → 4W 11:09 → EROBS 11:09 → 4W 14:16 → ENTRNSPT 06-21 15:06 → EDTRNSPTSTS 06-21 15:20 → 4W 06-21 15:48
PROVIDERS: Emergency Medicine; ADMIT Internal Medicine
PROC: 0F9430Z Drainage of Gallbladder with Drainage Device, Percutaneous Approach (ICD-10-PCS; principal; 2019-06-17)
DX: K80.00 Calculus of gallbladder with acute cholecystitis without obstruction (principal); J90 Pleural effusion, not elsewhere classified; I50.32 Chronic diastolic (congestive) heart failure; I42.9 Cardiomyopathy, unspecified; J84.10 Pulmonary fibrosis, unspecified; I48.91 Unspecified atrial fibrillation; J44.9 Chronic obstructive pulmonary disease, unspecified; Z96.643 Presence of artificial hip joint, bilateral; M21.70 Unequal limb length (acquired), unspecified site; I11.0 Hypertensive heart disease with heart failure; K42.9 Umbilical hernia without obstruction or gangrene; Z60.2 Problems related to living alone; I27.20 Pulmonary hypertension, unspecified; I35.0 Nonrheumatic aortic (valve) stenosis; Z79.01 Long term (current) use of anticoagulants; Z98.41 Cataract extraction status, right eye; Z98.42 Cataract extraction status, left eye; Z79.899 Other long term (current) drug therapy; Z79.51 Long term (current) use of inhaled steroids; Z88.8 Allergy status to other drugs, medicaments and biological substances; Z87.891 Personal history of nicotine dependence; Z90.710 Acquired absence of both cervix and uterus
CPT/HCPCS: 10040

== ENCOUNTER 2019-08-05 08:14 | Observation (INO) | payer OTHER ==
[~2019-08-05] VITALS: Ht 165.1 cm; Wt 76.2 kg
--- NOTE | ~2019-08-05 | O ---
[facility] [place] [address] OPERATIVE REPORT Name: KAILASH QUINONEZ Room #: 447-P [facility]..#: [id number] Admission: 08/05/19 Attend Phys: Mario Alberto Zarate MD Discharge: Date of : 34 Report #: [id number] THIS REPORT FOR: cc: Ranjeet Orellana MD, Christopher B. MD Chu,Mario Alberto Yee MD ~ CC: Dennis Zarate DATE OF SERVICE: 08/05/2019 PREOPERATIVE DIAGNOSES: Acute cholecystitis with cholelithiasis, status post cholecystostomy tube placement, here for laparoscopic cholecystectomy. POSTOPERATIVE DIAGNOSES: Acute cholecystitis with cholelithiasis, status post cholecystostomy tube placement, here for laparoscopic cholecystectomy. PROCEDURES PERFORMED: Laparoscopic cholecystectomy with cholangiogram. SURGEON: Mario Alberto Zarate M.D. ANESTHESIA: General anesthesia. COMPLICATIONS: None. BLOOD LOSS: 10 mL. PROCEDURE NOTE: With the patient under general anesthesia, abdomen was prepped and draped in sterile fashion. Timeout was performed. The patient did receive preoperative IV antibiotics. Marcaine 0.25% was used to anesthetize the skin and subcutaneous tissue of the abdominal wall at the trocar sites. A 2 cm incision was made above the umbilicus. The patient has a lower midline scar. After incising through the skin and subcutaneous tissue, fascia was identified, fascia was grasped with hemostat, fascia was then opened under visualization, 0 Vicryl suture placed on the fascia edges for retraction. Veress needle was then placed through the peritoneum. Abdominal cavity was insufflated with CO2 without difficulty. After creating pneumoperitoneum pressure of 15, an 11 mm trocar was placed into the pneumoperitoneum without difficulty. No harm to the underlying tissue. Two 5 mm trocars were placed in the right upper quadrant and a 5 mm trocar was placed in right epigastrium. The cholecystostomy tube tract going from the wall to the gallbladder was identified. The cholecystostomy tube was then removed. The tract was then divided at the abdominal wall level. The gallbladder was then lifted over the liver. The adhesion to the gallbladder was fairly extensive, but that was fairly easy to take down. The gallbladder was moderately elongated. The peritoneum was then dissected free mediolaterally [address] [address] OPERATIVE REPORT Name: KAILASH QUINONEZ Room #: 447-P [facility] M..#: [id number] Admission: 08/05/19 Attend Phys: Mario Alberto Zarate MD Discharge: Date of : 34 Report #: [id number] over the cystic duct. This area here where the gallbladder becomes a cystic duct was actually fairly easy to dissect free. The cystic duct is thickened and enlarged. A clip was placed at junction of cystic duct and the gallbladder. The common duct was not able to be visualized, but felt to be medioposteriorly. The cystic duct was opened. There were small stones within the cystic duct. This was all milked out. This was extracted. A cholangiogram catheter was placed. Due to the increased size of the cystic duct, it was hard to get a good seal around the cholangiogram catheter. Initial run showed the contrast to go into the distal common duct and quite a bit of leakage at the cannulation site. The catheter was removed and then replaced. There was a better seal this time, but there was still some extravasation of cholangiogram; however, the common duct was filled distally and then also filled proximally and the hepatic duct was also seen. No filling defect was seen in the common duct. Cholangiogram catheter was then removed. A clip was placed across the cystic duct. The cystic duct was divided. An 0 PDS Endoloop was then used to tie the common duct just more proximal to the clip that was placed. Cystic artery was easy to identify. The posterior branch was clipped x 1 and then divided with cautery. The main branch was also isolated, clipped x 2 proximally and 1 distally and then divided. Gallbladder was then freed from the liver bed. There was an artery up high on the bed that was clipped also. Gallbladder was free from the liver bed without difficulty. The gallbladder placed in a specimen bag. Part of the specimen bag was retrieved through the 11 mm trocar site. The fascia had to be enlarged in order to get the stone out. There are small stones and then a very large stone in the gallbladder that is oval shaped. Liver bed was checked, hemostasis excellent. Irrigation was performed. Irrigation was aspirated out. Trocars then removed with evacuation of CO2 as much as possible. Fascia defect at the umbilicus was closed with [id number]-[id number] 0 Vicryl x 2 and then interrupted 0 Vicryl. Skin was irrigated, closed with 5-0 PDS. Steri-Strip, Band-Aids applied. The previous gallbladder drain site was covered with antibiotic ointment and Band-Aid. The patient was awakened and taken to recovery room. By: 1543 1629 Mario Alberto Zarate MD /corinne
[~2019-08-05 08:14] MED LIST changes: +LASIX 40 MG TAB40 MG PO; +POTASSIUM20 PO; +PROAIR HFA8.5 GM INH
[2019-08-05 08:44] VITALS: BP 129/54
[2019-08-05 08:55] LABS: HEMATOCRIT 35.7 % (37.0-47.0); HEMOGLOBIN 11.4 gm/dL (12.0-15.0)
[2019-08-05 09:00] LABS: CALCIUM 10.1 mg/dL (8.5-10.1); CREATININE 1.4 mg/dL (0.6-1.0); POTASSIUM 3.7 mmol/L (3.5-5.1)
--- NOTE | 2019-08-05 12:43 | H ---
[facility] [place] [address] HISTORY AND PHYSICAL Name: KAILASH QUINONEZ Room #: 150-2 [employer] M.R.#: [id number] Admission: 08/05/19 Attend Phys: Mario Alberto Zarate MD Discharge: Date of : 34 Report #: [id number] THIS REPORT FOR: cc: Ranjeet Orellana MD, Christopher B. MD Chu,Mario Alberto Yee MD ~ CC: eDnnis Zarate DATE OF SERVICE: 08/05/2019 PREOPERATIVE DIAGNOSIS: Acute cholecystitis, status post cholecystostomy tube, here for laparoscopic cholecystectomy. HISTORY OF PRESENT ILLNESS: The patient is an 83-year-old who came to the ER on 06/17/2019. She started having abdominal pain in the epigastrium and right upper quadrant the night before. The patient's blood pressure was also elevated and she started to take her blood pressure medicine thinking that would help, but it did not. She had nausea, but no vomiting. The patient has no diarrhea. The patient came to the Emergency Room and a CT scan showed that she had an inflamed gallbladder with multiple stones. Her prior CT scan did show stones also and they were in a similar position, but the gallbladder was markedly inflamed. Because of comorbid condition and she was on Eliquis, she was not a surgical candidate. The Interventional Radiology just placed a gallbladder drain. The patient improved. Her pain resolved. She actually had a palpable gallbladder when I saw her in the ER. She is ready to have the gallbladder removed. Actually kind of put it on hold for a while because of the viral infection going around. I spoke with Dr. Armijo who felt that she has a history of mild aortic stenosis and atrial fibrillation, chronic congestive failure, cardiomyopathy thought that she is at dkf-bb-pzaxroln risk. The patient wants to proceed. PAST MEDICAL HISTORY: History of congestive heart failure, cardiomyopathy, atrial fibrillation, chronic anticoagulation with Eliquis; COPD, history of mild aortic stenosis, history of pulmonary fibrosis. PAST SURGICAL HISTORY: No prior significant surgical history. FAMILY HISTORY: Unremarkable. The patient lives by herself. She does not drink or use tobacco. ALLERGIES: SHE IS ALLERGIC TO STATINS. MEDICATIONS: Fosamax, Lexapro, Benicar, sotalol, vitamin D, DuoNeb, Lasix. [address] [address] HISTORY AND PHYSICAL Name: KAILASH QUINONEZ Room #: [facility]#: [id number] Admission: 08/05/19 Attend Phys: Mario Alberto Zarate MD Discharge: Date of : 34 Report #: [id number] REVIEW OF SYSTEMS: The patient's review of systems unremarkable. PHYSICAL EXAMINATION: GENERAL: The patient is alert and oriented. LUNGS: Clear. HEART: Regular rate and rhythm. No murmur or gallop. LUNGS: Clear to auscultation. ABDOMEN: Soft, nondistended. Drain is in place. No mass, guarding or rigidity. EXTREMITIES: No cyanosis, clubbing or edema. IMPRESSION: The patient is an 83-year-old with acute cholecystitis on 06/17/2019. The patient is treated with gallbladder drain and antibiotic. She has done well. She did have an episode of pain about 3-4 weeks ago, which was short-lived and resolved. The gallbladder drain has never really put out much bile. I think the stones are still stuck at the gallbladder neck. The patient is recommended to proceed with laparoscopic cholecystectomy. Procedure discussed. Risk of bleeding, infection, common bile duct injury was discussed. The patient understands the procedure and wishes to proceed. <ELECTRONICALLY SIGNED> By: Mario Alberto Zarate MD 08/05/19 1243 0822 0847 Mario Alberto Zarate MD /nt
[2019-08-05 14:30] VITALS: BP 142/50
[2019-08-05 15:20] VITALS: BP 146/51
[2019-08-05 20:21] VITALS: BP 130/49
[2019-08-06 05:42] VITALS: BP 116/57
[2019-08-06 07:36] VITALS: BP 118/43
[2019-08-06] MEDS ORDERED: NORCO 5-325 TA1 EAC1 PO (12:57)
[2019-08-06 15:09] VITALS: BP 118/43
[2019-08-06 15:36] VITALS: BP 122/58
--- NOTE | 2019-08-08 14:07 | PATH ---
[facility] [address] [place] [address] PATHOLOGY RPT PROCEDURE Name: KAILASH QUINONEZ Room #: 447-P [facility] MKimRKim#: [id number] Admission: 08/05/19 Date of : 34 Discharge: 08/06/19 Report #: [id number] Path Case #: [id number] [facility] Accession Number: [id number] . 01 Material submitted: . gallbladder - GALLBLADDER . 01 Clinical history: . Acute cholecystitis with cholelithiasis. . 02 Diagnosis: Gallbladder, cholecystectomy: - Moderate acute/active cholecystitis with ulceration. - Cholelithiasis. (IUV/db; 08/08/2019) LBQ 08/08/2019 1241 Local . 02 Electronically signed: . Tyesha Coronado MD, Pathologist NPI- [id number] . 01 Gross description: . Received in formalin labeled "Page, Kailash, gallbladder" is a previously opened cholecystectomy specimen measuring 10.2 x 3.8 x 1.9 cm. An irregular full-thickness defect/surgical incision extends along the length of the hepatic bed. The serosa is pink-yadav with focal red-yadav hemorrhage and puckering on the fundus. The mucosa is yadav-pink and roughened with a roughened area in the fundus measuring 3.8 x 2.0 cm. The average wall thickness is 0.1-0.8 cm. Multiple roughened yadav-brown calculi are present within the container ranging from 0.1-3.3 cm in greatest dimension, and measuring in aggregate 3.5 x 3.0 x 2.0 cm. Nylon Hot Wire Cutter sections are submitted as follows: A1 cystic duct margin and artist representative body A2 artist representative fundus ([facility]; 08/05/2019) [facility] 08/05/2019 1733 Local . 02 Pathologist provided ICD-10: K80.00 . 02 CPT . 876972 Specimen Comment: A courtesy copy of this report has been sent to [phone] Specimen Comment: [id number] Specimen Comment: Report sent to / DR LAGUNA Performed at: [address] [address] PATHOLOGY RPT PROCEDURE Name: KAILASH QUINONEZ Room #: 447-P [facility]#: [id number] Admission: 08/05/19 Date of : 34 Discharge: 08/06/19 Report #: [id number] Path Case #: [id number] [address] [facility] [address], [place] [id number] MD Octavio Coyle MD Phone: [phone] Performed at: [address] [id number] MD Tyesha Coronado MD Phone: [phone]
== END 2019-08-06 17:24 | disposition home or self-care (01) ==
LOC: OR 08:14 → TBA 09:54 → OR 12:57 → 4S 14:37
PROVIDERS: ADMIT Surgery
DX: K80.00 Calculus of gallbladder with acute cholecystitis without obstruction (principal); J44.9 Chronic obstructive pulmonary disease, unspecified; I50.9 Heart failure, unspecified; I42.9 Cardiomyopathy, unspecified; I48.91 Unspecified atrial fibrillation; Z79.01 Long term (current) use of anticoagulants
CPT/HCPCS: 50010; 50101; 50249; 50411; 50555; 50558; 51297; 51489; 52265; 53065; 53307; 53310; 53312; 55245; 55317; 56462; 56525; 56526; 62110; 62900; 70005

== ENCOUNTER → 2019-10-13 | Outpatient (CLI) | payer OTHER ==
[~2019-10-13] MED LIST changes: +NORCO 5-325 TA1 EAC1 PO
== END ==
LOC: RAD 14:40
PROVIDERS: ATTEND Internal Medicine
DX: J98.4 Other disorders of lung (principal); R91.8 Other nonspecific abnormal finding of lung field

== ENCOUNTER → 2019-11-21 | Outpatient (CLI) | payer OTHER | LOC: SJCVC 13:49 | PROVIDERS: ATTEND Internal Medicine | DX: R94.31 Abnormal electrocardiogram [ECG] [EKG] (principal); I48.0 Paroxysmal atrial fibrillation; R93.1 Abnormal findings on diagnostic imaging of heart and coronary circulation; I65.23 Occlusion and stenosis of bilateral carotid arteries; I11.0 Hypertensive heart disease with heart failure; I50.9 Heart failure, unspecified; E78.5 Hyperlipidemia, unspecified; J84.10 Pulmonary fibrosis, unspecified; I35.0 Nonrheumatic aortic (valve) stenosis; J44.9 Chronic obstructive pulmonary disease, unspecified; Z79.899 Other long term (current) drug therapy; Z87.891 Personal history of nicotine dependence ==

== ENCOUNTER → 2020-03-21 | Outpatient (CLI) | payer OTHER | LOC: CAT 11:00 | PROVIDERS: ATTEND Internal Medicine | DX: J90 Pleural effusion, not elsewhere classified (principal); R91.8 Other nonspecific abnormal finding of lung field; I70.0 Atherosclerosis of aorta; M25.78 Osteophyte, vertebrae ==

== ENCOUNTER → 2020-05-24 | Outpatient (CLI) | payer OTHER | LOC: SJCVCIMAG 07:04 | PROVIDERS: ATTEND Internal Medicine | DX: I08.3 Combined rheumatic disorders of mitral, aortic and tricuspid valves (principal); I65.23 Occlusion and stenosis of bilateral carotid arteries; R94.31 Abnormal electrocardiogram [ECG] [EKG]; I49.1 Atrial premature depolarization; I25.10 Atherosclerotic heart disease of native coronary artery without angina pectoris; I48.0 Paroxysmal atrial fibrillation; R93.1 Abnormal findings on diagnostic imaging of heart and coronary circulation; E78.5 Hyperlipidemia, unspecified; J84.10 Pulmonary fibrosis, unspecified; J44.9 Chronic obstructive pulmonary disease, unspecified; Z90.49 Acquired absence of other specified parts of digestive tract; Z90.710 Acquired absence of both cervix and uterus; Z98.61 Coronary angioplasty status; Z98.890 Other specified postprocedural states; Z88.8 Allergy status to other drugs, medicaments and biological substances; Z79.899 Other long term (current) drug therapy; Z87.891 Personal history of nicotine dependence ==

== ENCOUNTER 2020-07-06 08:28 | Inpatient (IN) | payer OTHER ==
[~2020-07-06] VITALS: Ht 165.1 cm; Wt 77.6 kg
--- NOTE | ~2020-07-06 | EMS ---
[address] [address] EMS Patient Care Report Name: KAILASH QUINONEZ ANN Room #: [facility] MKimRKim#: [id number] Admission: Attend Phys: Discharge: Date of : 34 Report #: [id number] THIS REPORT FOR: //name// Report Transmitted: 07/06/2020 08:07 EMS Care Summary [facility] MED-ACT Incident [id number] @ 07/06/2020 07:50 Incident Location [address] [place] [address] Patient KAILASH QUINONEZ Female, 84 Years 1935 Patient Address [address] [place] [address] Patient History Chronic Obstructive Pulmonary Disease (COPD),Hypertension (HTN),Gastro-Esophageal Reflux Disease (GERD),Rheumatic Aortic Stenosis,Coronary Artery Disease (CAD), Patient Allergies Other drug allergy, Patient Medications Lasix, Potassium, Lexapro, Zoloft, Eliquis, Chief Complaint shortness of breath Disposition Transported No Lights/[place] Reason Breathing Problem Transported To [facility] Narrative [address] [address] EMS Patient Care Report Name: KAILASH QUINONEZ Room #: PRE ER M.R.#: [id number] Admission: Attend Phys: Discharge: Date of : 34 Report #: [id number] Pt states she has COPD and only requires minimum supplemental oxygen while sleeping. She states she has noticed over the past several weeks that when she is walking about a block or more, she "gets huffy and puffy." She checks her oxygen and she says it is ok. This has been gradual onset. Last night, she didn't sleep very well and this morning woke up feeling short of breath. She called her daughter who then called 911. She states this doesn't feel like her normal shortness of breath, she states it feels more heaviness that is not allowing her to take a deep breath. She denies any chest pain. No recent fever/nausea/vomiting/diarrhea. She does report having a sore throat this morning that was not there when she went to bed. On arrival, she is found ambulatory and looking for something to wear in her closet. Recommend patient to sit down so we can assess her. Room air O2 is 82%. She is placed on NC and SpO2 quickly rises to 97%. She initially is a bit diaphoretic as well. After assessment, she agrees for transport to the hospital for further evaluation. Pt to cot in bedroom, secured with straps and cot to unit. Pt reports she is feeling much better than she was before. She coughs occasionally and she reports this to be non-productive and something she always has. At hospital, she is moved by sheet lift to ER bed, rails placed upright and report is given at bedside to RN. Initial Vitals @08:04P: 91,SpO2: 97, @08:17P: 84,R: 18,BP: 176/106,GCS: 15,SpO2: 93,Revised Trauma: 12, @08:00P: 105,R: 26,BP: 132/110,Pain: 0/10,GCS: 15,Temp: 98.6F,SpO2: 85,Revised Trauma: 12, Assessments @08:00MENTAL:Person Oriented,Time Oriented,Place Oriented,Event Oriented,SKIN:Diaphoresis,HEENT:Head/Face: No Abnormalities,Neck/Airway: No Abnormalities,LUNG SOUNDS:General: No Abnormalities,ABDOMEN:General: No Abnormalities,PELVIS//GI:EXTREMITIES:Left Arm: No Abnormalities,Right Arm: No Abnormalities,Left Leg: No Abnormalities,Right Leg: No Abnormalities,PULSE:NEURO:No Abnormalities, Impression Chronic Obstructive Pulmonary Disease (COPD) Procedures @08:0412-Lead ECGResponse: UnchangedSucceeded@08:01Oxygen FlowRate: 4 Device: Nasal Cannula (NC) Response: ImprovedSucceeded@08:23Surgical Mask on PatientResponse: Unchanged [facility] [address] [place] [address] EMS Patient Care Report Name: KAILASH QUINONEZ Room #: PRE ER M.R.#: [id number] Admission: Attend Phys: Discharge: Date of : 34 Report #: [id number] Timeline 07:49,Call Received 07:49,Psap Call 07:50,Dispatched 07:51,En Route 07:56,On Scene 07:59,At Patient 08:00,BP: 132/110 M,PULSE: 105,RR: 26 R,SPO2: 85 Ox,ETCO2: ,BG: ,PAIN: 0,GCS: 15, 08:01,Oxygen FlowRate: 4 Device: Nasal Cannula (NC) Response: ImprovedSucceeded, 08:04,12-Lead ECG,Response: UnchangedSucceeded, 08:04,BP: / M,PULSE: 91,RR: R,SPO2: 97 Ox,ETCO2: ,BG: ,PAIN: ,GCS: , 08:16,Depart Scene 08:17,BP: 176/106 M,PULSE: 84,RR: 18 R,SPO2: 93 Ox,ETCO2: ,BG: ,PAIN: ,GCS: 15, 08:23,Surgical Mask on Patient,Response: Unchanged 08:25,At Destination 08:39,Call Closed Disclaimer v1.1 Copyright 2020 [employer] This EMS Care Summary contains data elements from the applicable legal record (which may be displayed differently). It is designed to provide pertinent information for the following purposes: continuity of care, clinical quality, and state data reporting. The complete legal record is available to ED staff and administrators of the receiving hospital in [employer] Patient Tracker. All data is provided "as is."
[2020-07-06 08:29] VITALS: BP 235/95
[2020-07-06 08:44] LABS: ABSOLUTE NEUTROPHILS 8.3 thou/uL (1.4-8.2); BASOPHILS 0.6 % (0.0-2.0); EOSINOPHILS 0.9 % (0.0-3.0); HEMATOCRIT 38.1 % (37.0-47.0); HEMOGLOBIN 12.4 gm/dL (12.0-15.0); LYMPHOCYTES 11.3 % (24.0-44.0); MCH 27.8 pg (26.0-34.0); MCHC 32.6 g/dL (28.0-37.0); MCV 85.3 fL (80.0-100.0); MONOCYTES 8.3 % (1.0-8.0); PLATELET COUNT 215 thou/uL (150-400); POLYS 78.9 % (36.0-66.0); RBC 4.46 mil/uL (4.20-5.00); WBC 10.6 thou/uL (4.0-11.0)
[2020-07-06 08:55] LABS: BE(vivo) -4.1 mmol/L (-2 to +3); HCO3 22.5 mmol/L (22.0-26.0); PCO2 47.2 mmHg (35.0-45.0); PO2 83.8 mmHg (80.0-100.0); sO2 95.2 % (92.0-98.0)
[2020-07-06 08:56] LABS: pH 7.297 (7.360-7.450)
[2020-07-06 09:00] LABS: ANION GAP 11 mmol/L (7-16); BUN 29 mg/dL (7-18); CALCIUM 9.3 mg/dL (8.5-10.1); CHLORIDE 106 mmol/L (98-107); CO2 23 mmol/L (21-32); CREATININE 1.4 mg/dL (0.6-1.0); GLUCOSE 157 mg/dL (74-106); SODIUM 140 mmol/L (136-145)
[2020-07-06 09:10] LABS: ALBUMIN 3.4 g/dL (3.4-5.0); SGOT 66 U/L (15-37); SGPT 54 U/L (14-59); TOTAL BILIRUBIN 0.4 mg/dL (0.2-1.0); TOTAL PROTEIN 6.9 g/dL (6.4-8.2); TROPONIN-I <0.06 ng/mL (<0.06)
[2020-07-06 11:04] VITALS: BP 143/68
[2020-07-06 11:08] LABS: FOLIC ACID 12.9 ng/mL (8.6-58.9)
--- NOTE | 2020-07-06 13:08 | EKG ---
[address] [address] ELECTROCARDIOGRAM REPORT Name: KAILASH QUINONEZ Room #: 170-6 ADM IN M.R.#: [id number] Admission: 07/06/20 Attend Phys: Kojo Mckenna MD Discharge: Date of : 34 Report #: [id number] [facility] Test Date: 2020-07-06 Test Time: 08:37:20 Pat Name: KAILASH QUINONEZ Department: Room: 170 6 Gender: F Ramp Manager: : 1935 Requested By: Kojo Mckenna Order Number: [id number] MD: Abhay Willard Measurements Intervals [place] Rate: 81 P: 77 WI: 182 QRS: 77 QRSD: 100 T: 103 QT: 404 QTc: 469 Interpretive Statements Sinus rhythm Anteroseptal infarct, old Borderline repolarization abnormality Compared to ECG 06/17/2019 08:37:51 Ventricular premature complex(es) no longer present Possible ischemia no longer present Myocardial infarct finding still present Electronically Signed On 07-06-2020 13:08:38 CDT by Abhay Willard [email or web address] <ELECTRONICALLY SIGNED> By: Abhay Willard MD, FACC 07/06/20 1308 0837 0837 Abhay Willard MD, FAC /EPI
[2020-07-06 13:16] VITALS: BP 131/58
[2020-07-06 14:01] VITALS: BP 143/70
[2020-07-06 17:02] VITALS: BP 143/60
[2020-07-06 19:19] VITALS: BP 120/61
--- NOTE | 2020-07-06 19:27 | NUR ---
PT ADMITTED FROM ER ABOUT 1400PM, PT IS A&OX3 , PT IS ON O2 2L/MIN/NC, PT'S VS ARE STABLE, PT'S SOB HAS IMPROVED.
--- NOTE | 2020-07-06 21:54 | NUR ---
PT WATCHING TV IN BED. INDEP AND STEADY TO BSC. LUNGS WITH WHEEZES. PT HAD HS SNACK. O2 PER NC.
[2020-07-07 03:54] VITALS: BP 136/72
[2020-07-07 04:57] LABS: BASOPHILS 0.2 % (0.0-2.0); HEMATOCRIT 34.9 % (37.0-47.0); HEMOGLOBIN 11.3 gm/dL (12.0-15.0); LYMPHOCYTES 14.1 % (24.0-44.0); MCH 27.6 pg (26.0-34.0); MCHC 32.5 g/dL (28.0-37.0); MONOCYTES 12.3 % (1.0-8.0); PLATELET COUNT 208 thou/uL (150-400); POLYS 73.4 % (36.0-66.0); RDW 16.6 % (10.5-14.5); WBC 6.8 thou/uL (4.0-11.0)
--- NOTE | 2020-07-07 05:34 | NUR ---
PT REPORTS WAKING UP THREE TIMES SINCE 0230 AND FEELING GREAT EVERY TIME. PT DECLINED AM PROTONIX.
[2020-07-07 05:48] LABS: CALCIUM 9.5 mg/dL (8.5-10.1); CREATININE 1.8 mg/dL (0.6-1.0); MAGNESIUM 2.1 mg/dL (1.8-2.4); POTASSIUM 4.5 mmol/L (3.5-5.1)
[2020-07-07 07:30] VITALS: BP 139/61
[2020-07-07 11:23] VITALS: BP 138/60
[2020-07-07 16:27] VITALS: BP 116/57
--- NOTE | 2020-07-07 18:37 | NUR ---
RN ASSUMED PT'S CARE AT 0700AM, PT IS A&OX3, PT HAS OFF O2 AND SHE IS ON ROOM AIR, PT'S O2SAT AND VS ARE STABLE, PT GETS UP TO CHAIR BY HERSELF, PT DENIES PAIN AND SOB BY THIS TIME.
[2020-07-07 19:32] VITALS: BP 121/44
[2020-07-08 04:09] VITALS: BP 112/36
--- NOTE | 2020-07-08 06:51 | NUR ---
PT ON ROOM AIR UPON INITIAL ASSESSMENT. ABLE TO TO SPEAK IN FULL SENTENCES WITHOUT OBSERVABEL SOA. ABLE TO TRANSFER SELF FROM CHAIR TO BED WITHOUT SOA. O2 AT 2L PER NC AT NIGHT PT STATES THIS IS HER HOME ROUTINE. INITIAL ASSESSMENT PT HAD CRACKLES IN BL BASES BUT NO CRACKLES NOTED WITH FURTHER ASSESSMENTS. SEE CHARTING.
[2020-07-08 07:30] VITALS: BP 147/64
[2020-07-08 08:30] VITALS: BP 130/78
[2020-07-08 11:13] LABS: HEMATOCRIT 36.4 % (37.0-47.0); HEMOGLOBIN 11.7 gm/dL (12.0-15.0); MCH 27.4 pg (26.0-34.0); MCHC 32.1 g/dL (28.0-37.0); MCV 85.4 fL (80.0-100.0); RBC 4.26 mil/uL (4.20-5.00); RDW 16.8 % (10.5-14.5); WBC 5.5 thou/uL (4.0-11.0)
[2020-07-08 11:24] LABS: CALCIUM 9.5 mg/dL (8.5-10.1); CREATININE 1.5 mg/dL (0.6-1.0); MAGNESIUM 2.1 mg/dL (1.8-2.4); POTASSIUM 3.9 mmol/L (3.5-5.1)
[2020-07-08 12:08] VITALS: BP 130/78
--- NOTE | 2020-07-08 14:10 | NUR ---
RN ASSUMED PT'S CARE AT 0700AM, PT IS A&OX3,PT IS ON ROOM AIR, PT'S VS AND O2SAT ARE STABLE, PT GETS UP TO WALK IN HER ROOM, PT DENIES PAIN AND SOB. RN RECEIVED ORDER TO DC PT TO HOME.
[2020-07-08 14:13] VITALS: BP 130/78
--- NOTE | 2020-07-08 15:53 | NUR ---
RN HAD GIVING PT DC TEACHING , PT UNDERSTANDED WELL, PT DENIES PAIN AND SOB , PT'S DAUGHTER OTOLARYNGOLOGIST PT AT 1510PM.
--- NOTE | 2020-07-09 07:22 | EKG ---
[address] [address] ELECTROCARDIOGRAM REPORT Name: KAILASH QUINONEZ Room #: 355-[facility] IN M.R.#: [id number] Admission: 07/06/20 Attend Phys: Kojo Mckenna MD Discharge: 07/08/20 Date of : 34 Report #: [id number] [facility] Test Date: 2020-07-07 Test Time: 08:18:05 Pat Name: KAILASH QUINONEZ Department: Room: 355 Gender: F Rn Progressive Care Unit: KAMRYN : 1935 Requested By: Giovanny Armijo Order Number: [id number] MD: Abhay Willard Measurements Intervals [place] Rate: 60 P: 59 WA: 155 QRS: 29 QRSD: 92 T: -66 QT: 561 QTc: 561 Interpretive Statements Sinus rhythm Consider left atrial enlargement Inferior infarct, age indeterminate Anterior infarct, age indeterminate Prolonged QT interval Compared to ECG 07/06/2020 08:37:20 Prolonged QT interval now present Myocardial infarct finding still present Electronically Signed On 07-09-2020 7:22:00 CDT by Abhay Willard [email or web address] <ELECTRONICALLY SIGNED> By: Abhay Willard MD, FACC 07/09/20 0722 7 7 Abhay Willard MD, FAC /EPI
== END 2020-07-08 15:29 | disposition home or self-care (01) | DRG 291 ==
LOC: ER 08:28 → EROBS 09:57 → 3W 13:17
PROVIDERS: Emergency Medicine; Nurse Practitioner; ADMIT Internal Medicine; ATTEND Internal Medicine
DX: I13.0 Hypertensive heart and chronic kidney disease with heart failure and stage 1 through stage 4 chronic kidney disease, or unspecified chronic kidney disease (principal); J96.21 Acute and chronic respiratory failure with hypoxia; I50.33 Acute on chronic diastolic (congestive) heart failure; J44.1 Chronic obstructive pulmonary disease with (acute) exacerbation; E78.5 Hyperlipidemia, unspecified; F32.9 Major depressive disorder, single episode, unspecified; F41.9 Anxiety disorder, unspecified; I08.2 Rheumatic disorders of both aortic and tricuspid valves; I27.20 Pulmonary hypertension, unspecified; I16.0 Hypertensive urgency; N18.9 Chronic kidney disease, unspecified; I25.10 Atherosclerotic heart disease of native coronary artery without angina pectoris; I48.0 Paroxysmal atrial fibrillation; Z96.643 Presence of artificial hip joint, bilateral; Z20.822 Contact with and (suspected) exposure to COVID-19; Z98.42 Cataract extraction status, left eye; Z98.41 Cataract extraction status, right eye; Z90.710 Acquired absence of both cervix and uterus; Z79.01 Long term (current) use of anticoagulants; Z79.899 Other long term (current) drug therapy; Z88.8 Allergy status to other drugs, medicaments and biological substances; Z87.891 Personal history of nicotine dependence
CPT/HCPCS: 10879

== ENCOUNTER → 2021-01-28 | Outpatient (CLI) | payer OTHER | LOC: SJCVC 13:33 | PROVIDERS: ATTEND Internal Medicine | DX: R94.31 Abnormal electrocardiogram [ECG] [EKG] (principal); I48.0 Paroxysmal atrial fibrillation; R93.1 Abnormal findings on diagnostic imaging of heart and coronary circulation; I35.0 Nonrheumatic aortic (valve) stenosis; I65.23 Occlusion and stenosis of bilateral carotid arteries; E78.5 Hyperlipidemia, unspecified; J44.9 Chronic obstructive pulmonary disease, unspecified; I50.9 Heart failure, unspecified; I11.0 Hypertensive heart disease with heart failure; J84.10 Pulmonary fibrosis, unspecified; Z88.8 Allergy status to other drugs, medicaments and biological substances; Z87.891 Personal history of nicotine dependence; Z72.89 Other problems related to lifestyle; Z79.899 Other long term (current) drug therapy ==